=== PATIENT | male | born 1960 | race Caucasian/White ===

== ENCOUNTER 2024-04-04 11:00 | Outpatient (CLI) | payer OTHER, SELFPAY ==
--- NOTE | ~2024-04-04 | CT_ITS ---
EXAMINATION: CT abdomen pelvis wo con DATE: 04/04/2024 11:22 INDICATION: Edema, unspecified. TECHNIQUE: Computed tomography (CT) of the abdomen and pelvis was performed without intravenous contr ast. Automated exposure control and iterative reconstruction technique were employed. The dose-length product was 1107.09 mGy-cm. COMPARISON: None. FINDINGS: The visualized portions of the lung bases demonstrate small right and moderate-sized left p leural effusions. There is dependent atelectasis bilaterally. There is septal thickening in the lungs , consistent mild pulmonary edema. Cardiomegaly is noted. There are coronary artery calcifications. N o pericardial effusion. The liver, spleen, gallbladder, pancreas, and right adrenal gland are normal. There are dystrophic calcifications of left adrenal gland. The kidneys are normal. There is a right inguinal hernia containing fat. There are no dilated loops of bowel. The appendix is normal. There is a large volume of ascites. There are widespread edema of the intra-abdominal fat and body wall. Ther e are mildly enlarged right inguinal, bilateral external iliac, left para-aortic, aortocaval, and per iportal lymph nodes. There is mild thoracic and lumbar spondylosis. There is mild chronic anterior we dging of multiple thoracic vertebral bodies. There are bridging endplate osteophytes at multiple leve ls in the thoracic spine, consistent with diffuse idiopathic skeletal hyperostosis (DISH). IMPRESSION: 1. Small right and moderate-sized left pleural effusions. 2. Mild pulmonary edema. 3. Large volume of ascites. 4. Mild abdominal and pelvic lymphadenopathy, likely reactive. Reviewed, dictated and finalized at location A.
== END 2024-04-04 11:01 | disposition home or self-care (01) ==
PROVIDERS: PCP Physician Assistant Medical; Visit Provider Nurse Practitioner Family
DX: R60.9 Edema, unspecified (principal); R31.9 Hematuria, unspecified; J90 Pleural effusion, not elsewhere classified
CPT/HCPCS: 74176

== ENCOUNTER 2024-05-30 08:31 | Outpatient (CLI) | payer OTHER, SELFPAY ==
--- NOTE | ~2024-05-30 | NM_ITS ---
EXAMINATION: NM vanessa stress w perfusion DATE: 05/30/2024 11:30 INDICATION: Heart failure. TECHNIQUE: Rest images were obtained following intravenous administration of 9.2 mCi Tc99m tetrofosmi n (Myoview). The patient was infused intravenously with Lexiscan (regadenoson). Then, 29.2 mCi Tc99m tetrofosmin (Myoview) was administered intravenously, and supine and prone stress images were obtaine d. Data was reconstructed into short axis and horizontal and vertical long axis SPECT images. Gated S PECT images were also obtained. COMPARISON: CT abdomen and pelvis 04/04/2024 FINDINGS: There is a small, mild, fixed perfusion defect involving left ventricular apex, consistent with infarct. No reversible component to suggest ischemia. There is global hypokinesis. Left ventri cular ejection fraction measures 19%. IMPRESSION: 1. Small area of mild infarct involving left ventricular apex. 2. Global hypokinesis with left ventricular ejection fraction measuring 19%. Reviewed, dictated and finalized at location A. RANS REHABILITATION COUNSELOR
--- NOTE | 2024-05-30 08:48 | ECHO_ITS ---
Patient Info Name: Thierry Box Age: 63 years : 1960 Gender: Male Ht: 70 in Wt: 195 lbs BSA: 2.11 m2 HR: 70 bpm BP: 120 / 78 mmHg Heart Rhythm: Indeterminant Technical Quality: Good Exam Date: 05/30/2024 9:06 AM Exam Location: Echo Lab Patient Status: Outpatient Admit Date: 05/30/2024 Staff Ordering Physician: Nathan Cardenas DO Lumber Sorter Machine: Hood Shelton RDCS Attending Provider: Nathan Cardenas DO Referring Physician: Ronald ASHLEY; Exam Type: CA echo doppler color flow Study Info Indications - heartc failure Complete two-dimensional, color flow and Doppler transthoracic echocardiogram is performed. Summary 1. Complete two-dimensional, color flow and Doppler transthoracic echocardiogram is performed. 2. Left ventricular chamber dimension is severely enlarged. 3. D-shape interventricular septum during systole suggests RV pressure overload. 4. Left ventricular systolic function is severely reduced, estimated at 15-20%. 5. Left ventricular septal wall motion is abnormal with septal motion related to bundle branch block. 6. The left ventricular diastolic function is abnormal. 7. E/e' 33 is significantly elevated. 8. Right ventricular chamber dimension is severely enlarged. 9. Right ventricular systolic function is at least moderately reduced with abnormal TAPSE 1.4 cm. 10. Left atrial chamber dimension is severely enlarged. 11. Right atrial chamber dimension is severely enlarged. 12. There is mild aortic valve sclerosis. 13. There is moderate mitral valve regurgitation. 14. There is mild tricuspid valve regurgitation. 15. No pulmonary hypertension, estimated pulmonary arterial systolic pressure is 33 mmHg. 16. There is trace pulmonic regurgitation. Left Ventricle E/e' 33 is significantly elevated. D-shape interventricular septum during systole suggests RV pressure overload. Left ventricular chamber dimension is severely enlarged. Left ventricular systolic function is severely reduced, estimated at 15-20%. Left ventricular septal wall motion is abnormal with septal motion related to bundle branch block. The left ventricular diastolic function is abnormal. Right Ventricle Right ventricular systolic function is at least moderately reduced with abnormal TAPSE 1.4 cm. Right ventricular chamber dimension is severely enlarged. Left Atria Left atrial chamber dimension is severely enlarged. Right Atria Right atrial chamber dimension is severely enlarged. Aortic Valve The aortic valve is trileaflet. There is mild aortic valve sclerosis. There is no aortic valve stenosis. There is no aortic valve regurgitation. Pulmonic Valve There is trace pulmonic regurgitation. Mitral Valve There is no mitral valve stenosis. There is moderate mitral valve regurgitation. Tricuspid Valve There is mild tricuspid valve regurgitation. No pulmonary hypertension, estimated pulmonary arterial systolic pressure is 33 mmHg. Pericardium/Pleural There is no pericardial effusion. Inferior Vena Cava Normal inferior vena cava with >50% collapse upon inspiration consistent with normal right atrial pressure, 5 mmHg. Aorta The aortic root size at the sinus of Valsalva is normal. Left Ventricular Outflow Tract Name Value Normal LVOT 2D LVOT Diameter 1.9 cm LVOT Doppler LVOT Peak Gradient 1 mmHg LVOT Mean Gradient 1 mmHg LVOT VTI 8 cm LVOT VTI/AV VTI Ratio 0.7 LVOT Stroke Volume 23 ml LVOT CO 2.2 l/min LVOT CI 1.1 l/min/m2 Mitral Valve Name Value Normal MV Doppler MV Decel Alexander 596 cm/s2 MV PHT 50 ms MV Area (PHT) 4.4 cm2 4.0-5.0 MV Regurgitation Doppler MR Peak Gradient 66 mmHg MV Diastolic Function MV E Peak Velocity 103 cm/s MV A Peak Velocity 1 cm/s MV E/A 71.8 MV Decel Time 174 ms MV Annular TDI MV E/e' (Septal) 34.8 <=8.0 MV E/e' (Lateral) 31.9 <=8.0 MV E/e' (Average) 33.4 Tricuspid Valve Name Value Normal TV Regurgitation Doppler TR Peak Velocity 266 cm/s TR Peak Gradient 28 mmHg Estimated PAP/RSVP RA Pressure 5 mmHg <=5 PA Systolic Pressure 33 mmHg <36 RV Systolic Pressure 33 mmHg <36 Aortic Valve Name Value Normal AV Doppler AV Peak Velocity 74 cm/s AV Peak Gradient 2 mmHg AV Mean Gradient 2 mmHg AV VTI 11 cm AV Area (Cont Eq VTI) 2.1 cm2 >=3.0 AV Area (Cont Eq Arsalan) 2.3 cm2 AV Regurgitation 2D LVOT Area 2.9 cm2 Ventricles Name Value Normal LV Dimensions 2D/MM IVS Diastolic Thickness (2D) 0.8 cm 0.6-1.0 LVID Diastole (2D) 6.0 cm 4.2-5.8 LVIW Diastolic Thickness (2D) 0.9 cm 0.6-1.0 LVID Systole (2D) 5.1 cm 2.5-4.0 LVOT Diameter 1.9 cm LV Mass (2D Cubed) 205.05 g 88.00-224.00 LV Mass Index (2D Cubed) 97 g/m2 49-115 Relative Wall Thickness (2D) 0.30 LV Fractional Shortening/Ejection Fraction 2D/MM LV Fractional Shortening (2D) 14 % 25-43 LV EF (2D Teicholz) 30 % 52-72 LV Diastolic Volume (4C MOD) 125 ml LV EF (4C MOD) 18 % LV Diastolic Volume (2C MOD) 288 ml LV EF (2C MOD) 32 % LV Diastolic Volume (BP MOD) 210 ml 62-150 LV Diastolic Volume Index (BP MOD) 100 ml/m2 34-74 LV Systolic Volume (BP MOD) 151 ml 21-61 LV Systolic Volume Index (BP MOD) 72 ml/m2 11-31 LV EF (BP MOD) 28 % 52-72 LV Diastolic Length (4C) 7.8 cm LV Systolic Length (4C) 7.4 cm LV Stroke Volume (4C MOD) 22 ml Atria Name Value Normal LA Dimensions LA Volume (4C A-L) 66 ml LA Volume (BP A-L) 68 ml RA Dimensions RA Area (4C) 26.3 cm2 <=18.0 Report Signatures
--- NOTE | 2024-05-30 08:48 | EST_ITS ---
Patient Info Name: Thierry Box Age: 63 years : 1960 Gender: Male Ht: 70 in Wt: 195 lbs BSA: 2.11 m2 HR: 98 bpm BP: 121 / 90 mmHg Exam Date: 05/30/2024 10:22 AM Exam Location: Echo Lab Patient Status: Outpatient Admit Date: 05/30/2024 Staff Ordering Physician: Nathan Cardenas DO Attending Provider: Nathan Cardenas DO Exercise Technologist: Kerri Arguelles RDCS Exercise Physician: Nathan Cardenas DO Exam Type: CA stress vanessa w NM Study Info A regadenoson stress test was performed. Summary 1. 1. Inconclusive lexiscan stress test for ischemic ST changes by ECG criteria due to baseline LBBB. 2. 2. Stable hemodynamics throughout the test. 3. 3. Nuclear scan to follow and will be reported separately. Please correlate with it. 4. 4. Patient informed of the above results. Protocol: Lexiscan Stress ECG Details Stage: REST Duration (min): 2 min : 48 sec HR (bpm): 98 SBP (mmHg): 121 DBP (mmHg): 90 Stage: REST Duration (min): 12 min : 13 sec HR (bpm): 100 SBP (mmHg): 121 DBP (mmHg): 90 Stage: STAGE 1 Duration (min): 1 min : 0 sec HR (bpm): 102 SBP (mmHg): 114 DBP (mmHg): 83 Stage: RECOVERY Duration (min): 1 min : 0 sec HR (bpm): 102 SBP (mmHg): 114 DBP (mmHg): 83 Stage: RECOVERY Duration (min): 2 min : 0 sec HR (bpm): 102 SBP (mmHg): 114 DBP (mmHg): 83 Stage: RECOVERY Duration (min): 3 min : 0 sec HR (bpm): 101 SBP (mmHg): 113 DBP (mmHg): 87 Stage: RECOVERY Duration (min): 3 min : 14 sec HR (bpm): 100 SBP (mmHg): 113 DBP (mmHg): 87 Rest HR: 100 bpm Peak HR: 103 bpm Rest Sys BP: 121 mmHg Peak Sys BP: 114 mmHg Max Pred HR: 157 bpm % Max Pred HR: 66 % Target HR: 133 bpm Max RPP: 11,742 bpm*mmHg Termination Reason: Completed protocol Cardiac Symptoms: None Total Time: 1 min : 0 sec Rest Beebe BP: 90 mmHg Peak Beebe BP: 83 mmHg Total Dose: 0.4 mg Resting ECG Sinus rhythm, LBBB. Stress ECG No ST changes. Arrhythmias None. Report Signatures
== END 2024-05-30 08:32 | disposition home or self-care (01) ==
PROVIDERS: PCP Physician Assistant Medical; Visit Provider Internal Medicine Cardiovascular Disease
DX: I50.9 Heart failure, unspecified (principal); I34.0 Nonrheumatic mitral (valve) insufficiency; I35.1 Nonrheumatic aortic (valve) insufficiency; I36.1 Nonrheumatic tricuspid (valve) insufficiency
CPT/HCPCS: 78452; 93017; 93306; A9502; J2785

== ENCOUNTER 2024-08-22 13:37 | Outpatient (CLI) | payer OTHER, SELFPAY ==
[2024-08-22] MEDS: PERFLUTREN LIPID MICROSPHERES 1.5 ML VIAL DILUTED TO 10 ML TOTAL VOLUME IV PUSH (13:30)
--- NOTE | 2024-08-22 13:40 | ECHO_ITS ---
Patient Info Name: Thierry Box Age: 63 years : 1960 Gender: Male Ht: 70 in Wt: 180 lbs BSA: 2.02 m2 HR: 85 bpm BP: 138 / 83 mmHg Heart Rhythm: Sinus Rhythm Technical Quality: Good Exam Date: 08/22/2024 1:48 PM Exam Location: Echo Lab Patient Status: Outpatient Admit Date: 08/22/2024 Staff Ordering Physician: Nathan Cardenas DO Tableau Architect: Kerri Arguelles RDCS Attending Provider: Nathan Cardenas DO Referring Physician: Ronald ASHLEY; Exam Type: CA echo dop color flow w con Study Info Indications - heart disease Complete two-dimensional, color flow and Doppler transthoracic echocardiogram is performed with contrast to opacify the left ventricle and to improve the deliniation of the left ventricle endocardial borders. Contrast/Agitated Saline Contrast/Ag. Saline: Definity Amount: 2.00 ml Administered By: Kerri Arguelles RDCS New IV Access: Left Site Condition: IV removed Summary 1. Definity contrast administered improved wall motion interpretation. 2. Left ventricular chamber dimension is severely enlarged. 3. Small apical lateral thrombus. 4. Left ventricular systolic function is severely globally reduced, estimated at 15-20%. 5. The left ventricular diastolic function is abnormal based on e' .06. 6. Right ventricular systolic function is severely reduced. 7. Right ventricular chamber dimension is moderately enlarged. 8. Left atrial chamber dimension is moderately enlarged. 9. Right atrial chamber dimension is moderately enlarged. 10. There is mild aortic valve sclerosis. 11. There is mild to moderate mitral valve regurgitation. 12. There is mild tricuspid valve regurgitation. 13. Moderate pulmonary hypertension, estimated pulmonary arterial systolic pressure is 57 mmHg. Left Ventricle Small apical lateral thrombus. Definity contrast administered improved wall motion interpretation. Left ventricular systolic function is severely globally reduced, estimated at 15-20%. Tissue doppler E/e' was not performed. Left ventricular chamber dimension is severely enlarged. The left ventricular diastolic function is abnormal based on e' .06. Right Ventricle Right ventricular chamber dimension is moderately enlarged. Right ventricular systolic function is severely reduced. Left Atria Left atrial chamber dimension is moderately enlarged. Right Atria Right atrial chamber dimension is moderately enlarged. Aortic Valve The aortic valve is trileaflet. There is mild aortic valve sclerosis. There is no aortic valve stenosis. There is no aortic valve regurgitation. Pulmonic Valve There is no pulmonic regurgitation. Mitral Valve There is no mitral valve stenosis. There is mild to moderate mitral valve regurgitation. Tricuspid Valve There is mild tricuspid valve regurgitation. Moderate pulmonary hypertension, estimated pulmonary arterial systolic pressure is 57 mmHg. Pericardium/Pleural There is no pericardial effusion. Inferior Vena Cava Dilated inferior vena cava with >50% collapse upon inspiration consistent with normal right atrial pressure, 5 mmHg. Aorta The aortic root size at the sinus of Valsalva is normal. Left Ventricular Outflow Tract Name Value Normal LVOT 2D LVOT Diameter 1.89 cm LVOT Doppler LVOT Peak Gradient 3 mmHg LVOT Mean Gradient 1 mmHg LVOT VTI 14.03 cm LVOT VTI/AV VTI Ratio 0.60 LVOT Stroke Volume 39.32 ml LVOT CO 3.29 l/min LVOT CI 1.63 L/min/m2 Pulmonic Valve Name Value Normal RVOT Doppler RVOT Peak Gradient 2 mmHg PV Doppler PV Peak Gradient 3 mmHg Mitral Valve Name Value Normal MV Regurgitation Doppler MR Peak Gradient 68 mmHg Tricuspid Valve Name Value Normal TV Regurgitation Doppler TR Peak Velocity 360.39 cm/s TR Peak Gradient 52 mmHg Estimated PAP/RSVP RA Pressure 5 mmHg <=5 PA Systolic Pressure 57 mmHg <36 RV Systolic Pressure 57 mmHg <36 Aorta Name Value Normal Ascending Aorta Ao Root Diameter (MM) 3.12 cm Ao Root Diam Index (MM) 1.54 cm/m2 Aortic Valve Name Value Normal AV Doppler AV Peak Velocity 144.33 cm/s AV Peak Gradient 8 mmHg AV Mean Gradient 4 mmHg AV VTI 23.23 cm AV Area (Cont Eq VTI) 1.69 cm2 >=3.00 AV Area (Cont Eq Arsalan) 1.67 cm2 AV Regurgitation 2D LVOT Area 2.80 cm2 Ventricles Name Value Normal LV Dimensions 2D/MM IVS Diastolic Thickness (2D) 0.86 cm 0.60-1.00 LVID Diastole (2D) 5.97 cm 4.20-5.80 LVIW Diastolic Thickness (2D) 0.87 cm 0.60-1.00 LVID Systole (2D) 5.28 cm 2.50-4.00 LVOT Diameter 1.89 cm LV Mass (2D Cubed) 203.87 g 88.00-224.00 LV Mass Index (2D Cubed) 0.01 g/cm2 0.00-0.01 Relative Wall Thickness (2D) 0.29 LV Fractional Shortening/Ejection Fraction 2D/MM LV Fractional Shortening (2D) 12 % 25-43 LV EF (2D Teichswathiz) 25 % 52-72 LV Diastolic Volume (4C MOD) 211.20 ml LV EF (4C MOD) 23 % LV Diastolic Volume (2C MOD) 222.55 ml LV EF (2C MOD) 34 % LV Diastolic Volume (BP MOD) 221.33 ml 62.00-150.00 LV Diastolic Volume Index (BP MOD) 0.11 l/m2 0.03-0.07 LV Systolic Volume (BP MOD) 156.81 ml 21.00-61.00 LV Systolic Volume Index (BP MOD) 0.08 l/m2 0.01-0.03 LV EF (BP MOD) 29 % 52-72 LV Diastolic Length (4C) 9.15 cm LV Systolic Length (4C) 8.31 cm LV Stroke Volume (4C MOD) 47.94 ml Atria Name Value Normal LA Dimensions LA Dimension (MM) 5.03 cm 3.00-4.10 LA Volume (4C A-L) 102.02 ml LA Volume (BP A-L) 99.34 ml RA Dimensions RA Area (4C) 22.79 cm2 <=18.00 Report Signatures
--- OUTSIDE RECORDS SUMMARY | 2024-08-22 13:40 | XMS_ITS | Clinical Summary ---
Author Organization [facility] Address [address] [place] [address]. 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 Temperature - - Respiratory Rate - - Oxygen Saturation - - Inhaled Oxygen Concentration - - Weight 89.8 kg (198 lb) 07/07/2015 2:53 PM 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 Height 177.8 cm (5' 10 ) 07/07/2015 2:53 PM 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 Body Mass Index 28.41 07/07/2015 2:53 PM 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 Plan of Treatment Health Maintenance Due Date Last Done Comments Colorectal Cancer Screening Colonoscopy (10 Years) 1960 , Annual Physical 11/09/1963 Hepatitis C 1978 DTaP, Tdap and Td Vaccines ( 1 - Tdap) 11/09/1979 Zoster Vaccines (1 of 2) 2010 COVID-19 Vaccine (2023-2 5 season) 2024 Influenza Adult (#1) 2024 RSV Immunization or 60+ Years (1 - 1-dose 75+ series) 11/09/2035 Meningococcal B Vaccine Aged Out No l onger eligible based on patient's age to complete this topic Meningococcal Vaccine Aged Out No fausto soham eligible based on patient's age to complete this topic Pneumococcal Vaccine: Pediatrics (0 to 5 Years) and At-Risk Patients (6 to 64 Years) Aged Out No longer eligible b ased on patient's age to complete this topic RSV Immunizations Under 20 Months Aged Out No longer eligible b ased on patient's age to complete this topic Procedures Procedure Name Priority Date/Time Associated Diagnosis Comments COLONOSCOPY Routine 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 from Last 3 Months or Most Recently Relevant to Health Maintenance Results * Colonoscopy ( 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) Narrative [facility] TO EPIC CONVERSION - 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 Documented hx of procedure Procedure Note , Generic Conversion, - 05/26/2018 Documented hx of procedure us Generic Conversion Md ANAND GI PROCEDURE ORDERABLES Final Result [facility] TO EPIC CONVERSION from Last 3 Months or Most Recently Relevant to Health Maintenance
--- NOTE | 2024-08-22 15:00 | IVDEFINITY ---
Prior to administration of IV Definity the patient was educated on the risks and benefits of the imaging enhancing agent including potential adverse side effects. The patient verbalized understanding. Allergies were verified. No exclusion criteria were identified and at least one of the following inclusion criteria were met: 1) physician request, 2) patient technically difficult to image (per the [place] [employer]chocardi[employer] guidelines of two or more segments not discernable within the apical view), or 3) questionable left ventricular function. ?
== END 2024-08-22 13:38 | disposition home or self-care (01) ==
PROVIDERS: PCP Physician Assistant Medical; Visit Provider Internal Medicine Cardiovascular Disease
DX: I23.6 Thrombosis of atrium, auricular appendage, and ventricle as current complications following acute myocardial infarction (principal); I50.20 Unspecified systolic (congestive) heart failure; I08.3 Combined rheumatic disorders of mitral, aortic and tricuspid valves; I27.20 Pulmonary hypertension, unspecified
CPT/HCPCS: C8929; Q9957

== ENCOUNTER 2024-10-16 12:40 | Outpatient (CLI) | payer OTHER, SELFPAY ==
--- NOTE | 2024-10-16 13:06 | ECHO_ITS ---
Patient Info Name: Thierry Box Age: 63 years : 1960 Gender: Male Ht: 70 in Wt: 175 lbs BSA: 1.99 m2 HR: 71 bpm BP: 125 / 70 mmHg Technical Quality: Good Exam Date: 10/16/2024 1:12 PM Exam Location: Echo Lab Patient Status: Outpatient Admit Date: 10/16/2024 Staff Ordering Physician: Nathan Cardenas DO Steam Train Driver: Marii Romero RDCS Attending Provider: Nathan Cardenas DO Referring Physician: Ronald ASHLEY; Exam Type: CA echo dop color flow w con Study Info Indications I51.9 - Heart disease, unspecified Complete two-dimensional, color flow and Doppler transthoracic echocardiogram is performed with contrast to opacify the left ventricle and to improve the deliniation of the left ventricle endocardial borders. Contrast/Agitated Saline Contrast/Ag. Saline: Definity Amount: 2.00 ml IV Access Condition: patent with no signs of infiltration New IV Access: Right Site Condition: IV removed Summary 1. Definity contrast administered improved wall motion interpretation. 2. Left ventricular chamber dimension is severely enlarged. 3. Left ventricular systolic function is severely globally reduced, estimated at 20-25%. 4. The left ventricular diastolic function is abnormal. 5. E/e' 10 is mildly elevated. 6. Left atrial chamber dimension is moderately enlarged. 7. Right atrial chamber dimension is mildly enlarged. 8. There is mild to moderate mitral valve regurgitation. 9. There is mild tricuspid valve regurgitation. 10. No pulmonary hypertension, estimated pulmonary arterial systolic pressure is 39 mmHg. Left Ventricle Definity contrast administered improved wall motion interpretation. E/e' 10 is mildly elevated. Left ventricular chamber dimension is severely enlarged. Left ventricular systolic function is severely globally reduced, estimated at 20-25%. The left ventricular diastolic function is abnormal. Right Ventricle Right ventricular chamber dimension is normal. Right ventricular systolic function is normal. Left Atria Left atrial chamber dimension is moderately enlarged. Right Atria Right atrial chamber dimension is mildly enlarged. Aortic Valve The aortic valve is trileaflet. There is no aortic valve stenosis. There is no aortic valve regurgitation. Pulmonic Valve There is no pulmonic regurgitation. Mitral Valve There is no mitral valve stenosis. There is mild to moderate mitral valve regurgitation. Tricuspid Valve There is mild tricuspid valve regurgitation. No pulmonary hypertension, estimated pulmonary arterial systolic pressure is 39 mmHg. Pericardium/Pleural There is no pericardial effusion. Inferior Vena Cava Normal inferior vena cava with >50% collapse upon inspiration consistent with normal right atrial pressure, 5 mmHg. Aorta The aortic root size at the sinus of Valsalva is normal. Left Ventricular Outflow Tract Name Value Normal LVOT 2D LVOT Diameter 2.18 cm LVOT Doppler LVOT Peak Gradient 6 mmHg LVOT Mean Gradient 4 mmHg LVOT VTI 26.58 cm LVOT VTI/AV VTI Ratio 0.69 LVOT Stroke Volume 99.40 ml LVOT CO 21.32 l/min LVOT CI 10.72 L/min/m2 Pulmonic Valve Name Value Normal PV Doppler PV Peak Gradient 3 mmHg Mitral Valve Name Value Normal MV Doppler MV Decel [place] 449.70 cm/s2 MV PHT 0 s MV Area (PHT) 3.91 cm2 4.00-5.00 MV Diastolic Function MV E Peak Velocity 87.25 cm/s MV A Peak Velocity 66.37 cm/s MV E/A 1.31 MV Decel Time 0 s MV Annular TDI MV E/e' (Septal) 14.32 <=8.00 MV E/e' (Lateral) 7.69 <=8.00 MV E/e' (Average) 11.00 Tricuspid Valve Name Value Normal TV Regurgitation Doppler TR Peak Velocity 291.47 cm/s TR Peak Gradient 34 mmHg Estimated PAP/RSVP RA Pressure 5 mmHg <=5 PA Systolic Pressure 39 mmHg <36 RV Systolic Pressure 39 mmHg <36 Aorta Name Value Normal Ascending Aorta Ao Root Diameter (MM) 3.14 cm Ao Root Diam Index (MM) 1.58 cm/m2 Aortic Valve Name Value Normal AV Doppler AV Peak Velocity 180.74 cm/s AV Peak Gradient 13 mmHg AV Mean Gradient 8 mmHg AV VTI 38.24 cm AV Area (Cont Eq VTI) 2.60 cm2 >=3.00 AV Area (Cont Eq Arsalan) 2.43 cm2 AV Regurgitation 2D LVOT Area 3.74 cm2 Ventricles Name Value Normal LV Dimensions 2D/MM IVS Diastolic Thickness (2D) 0.99 cm 0.60-1.00 LVID Diastole (2D) 5.64 cm 4.20-5.80 LVIW Diastolic Thickness (2D) 0.99 cm 0.60-1.00 LVID Systole (2D) 5.08 cm 2.50-4.00 LVOT Diameter 2.18 cm LV Mass (2D Cubed) 219.06 g 88.00-224.00 LV Mass Index (2D Cubed) 0.01 g/cm2 0.00-0.01 Relative Wall Thickness (2D) 0.35 LV Fractional Shortening/Ejection Fraction 2D/MM LV Fractional Shortening (2D) 10 % 25-43 LV EF (2D Teicholz) 21 % 52-72 LV Diastolic Volume (4C MOD) 213.91 ml LV EF (4C MOD) 29 % LV Diastolic Volume (2C MOD) 205.22 ml LV EF (2C MOD) 41 % LV Diastolic Volume (BP MOD) 210.73 ml 62.00-150.00 LV Diastolic Volume Index (BP MOD) 0.11 l/m2 0.03-0.07 LV Systolic Volume (BP MOD) 138.84 ml 21.00-61.00 LV Systolic Volume Index (BP MOD) 0.07 l/m2 0.01-0.03 LV EF (BP MOD) 34 % 52-72 LV Diastolic Length (4C) 9.53 cm LV Systolic Length (4C) 8.25 cm LV Stroke Volume (4C MOD) 61.32 ml RV Dimensions 2D/MM RVID Diastole (2D) 3.76 cm 2.50-3.50 Atria Name Value Normal LA Dimensions LA Dimension (MM) 3.81 cm 3.00-4.10 LA Volume (4C A-L) 87.13 ml LA Volume (BP A-L) 98.96 ml RA Dimensions RA Area (4C) 19.11 cm2 <=18.00 Report Signatures
--- OUTSIDE RECORDS SUMMARY | 2024-10-16 13:24 | XMS_ITS | Clinical Summary ---
Author Organization [facility] Address [address] [place] [address] Care Team Providers Care Business Owner/Engineer Name Role Phone Unavailable Primary Care Provider [...] Comments Blood Pressure 160/60 07/07/2015 2:53 PM WOOD CHOPPER Pulse 105 07/07/2015 2:53 PM WOOD CHOPPER Temperature - - Respiratory Rate - - Oxygen Saturation - - Inhaled Oxygen Concentration - - Weight 89.8 kg (198 lb) 07/07/2015 2:53 PM WOOD CHOPPER Height 177.8 cm (5' 10 ) 07/07/2015 2:53 PM WOOD CHOPPER Body Mass Index 28.41 07/07/2015 2:53 PM WOOD CHOPPER Plan of Treatment Health Maintenance Due Date [...] Priority Date/Time Associated Diagnosis Comments COLONOSCOPY Routine WOOD CHOPPER from Last 3 Months or Most Recently Relevant to Health Maintenance Results * Colonoscopy ( WOOD CHOPPER) Narrative [facility] TO EPIC CONVERSION - WOOD CHOPPER Documented hx of procedure Procedure Note , Generic Conversion, - 05/26/2018 Documented hx of procedure Generic Conversion Md ANAND GI PROCEDURE ORDERABLES Final Result [facility] TO EPIC CONVERSION from Last 3 Months or Most Recently Relevant to Health Maintenance
[2024-10-16] MEDS: PERFLUTREN LIPID MICROSPHERES 1.5 ML VIAL DILUTED TO 10 ML TOTAL VOLUME IV PUSH (13:30)
--- NOTE | 2024-10-16 14:42 | IVDEFINITY ---
Prior to administration of IV Definity the patient was educated on the risks and benefits of the imaging enhancing agent including potential adverse side effects. The patient verbalized understanding. Allergies were verified. No exclusion criteria were identified and at least one of the following inclusion criteria were met: 1) physician request, 2) patient technically difficult to image (per the [place] [employer] of Echocardi[employer] guidelines of two or more segments not discernable within the apical view), or 3) questionable left ventricular function. ?
== END 2024-10-16 12:41 | disposition home or self-care (01) ==
PROVIDERS: PCP Physician Assistant Medical; Visit Provider Internal Medicine Cardiovascular Disease
DX: R93.1 Abnormal findings on diagnostic imaging of heart and coronary circulation (principal); I51.9 Heart disease, unspecified
CPT/HCPCS: C8929; Q9957

== ENCOUNTER 2025-03-02 14:31 | Outpatient (CLI) | payer OTHER, SELFPAY ==
--- OUTSIDE RECORDS SUMMARY | 2025-03-02 14:47 | XMS_ITS | Clinical Summary ---
Author Organization [facility] Address [address] [place] [address] Care Team Providers Care Revenue Coordinator Name Role Phone Unavailable Primary Care Provider [...] Comments Blood Pressure 160/60 07/07/2015 2:53 PM LAY OUT DRAFTER Pulse 105 07/07/2015 2:53 PM LAY OUT DRAFTER Temperature - - Respiratory Rate - - Oxygen Saturation - - Inhaled Oxygen Concentration - - Weight 89.8 kg (198 lb) 07/07/2015 2:53 PM LAY OUT DRAFTER Height 177.8 cm (5' 10) 07/07/2015 2:53 PM LAY OUT DRAFTER Body Mass Index 28.41 07/07/2015 2:53 PM LAY OUT DRAFTER Plan of Treatment Health Maintenance Due Date Last Done Comments Colorectal Cancer Screening Colonoscopy (10 Years) 1960 , Annual Physical 11/09/1963 Hepatitis C 1978 DTaP, Tdap and Td Vaccines ( 1 - Tdap) 11/09/1979 Pneumococcal Vaccine: 50+ Years (1 of 1 - PCV) 2010 Zoster Vaccines (1 of 2) 2010 COVID-19 Vaccine ( - 2023-2 5 season) 2024 RSV Immunization or 60+ Years (1 [...] Priority Date/Time Associated Diagnosis Comments COLONOSCOPY Routine LAY OUT DRAFTER from Last 3 Months or Most Recently Relevant to Health Maintenance Results * Colonoscopy ( LAY OUT DRAFTER) Narrative [facility] TO EPIC CONVERSION - LAY OUT DRAFTER Documented hx of procedure Procedure Note , Generic Conversion, - 05/26/2018 Documented hx of procedure us Generic Conversion Md ANAND GI PROCEDURE ORDERABLES Final Result [facility] TO EPIC CONVERSION from Last 3 Months or Most Recently Relevant to Health Maintenance
--- OUTSIDE RECORDS SUMMARY | 2025-03-02 14:47 | XMS_ITS ---
Author Organization [facility] Address [address] [place] [address] Care Team Providers Care Energy Rater Name Role Phone Cece Bae Primary Care Provider [phone] Jenny PatrickW Unavailable Unavaila Raoul Paul MD Unavailable [phone] Radha Villarreal RN Unavailable Unavailable Khanh Salazar MD Unavailable [phone] Keyshawn Villarreal MD Unavailable [phone] Nathan Cardenas DO Unavailable [phone] Active Problems Problem Noted Date Diagnosed Date Other heart failure 12/02/2024 Assessment & Plan (12/04/2024 10:02 AM CDT): Euvolemic Home meds: lasix, entresto, spironolactone, metoprolol, dapagliflozin Plan Resume home metoprolol XL 25 daily as it has less effect on lowering BP than carvedilol Cautiously continue Lasix 40 PO daily, spironolactone 25 (don't give lasix/radha if SBP<110) Hold dapagliflozin while inpatient, may resume on discharge Hold entresto, resume with PCP after discharge due to soft inpatient BP Assessment & Plan (12/03/2024 8:58 AM CDT): Euvolemic Home meds: lasix, entresto, spironolactone, metoprolol, dapagliflozin Plan Resume metoprolol, patient is getting metoprolol tartrate, which is not optimal for HF, please check with the pharmacy if can get either metoprolol succinate or carvedilol through the NG Hold entresto in the setting of post-op soft BP Cautiously continue Lasix 40 PO daily, spironolactone 25 (don't give lasix/radha if SBP<110) Hold dapagliflozin till discharge Assessment & Plan (12/02/2024 2:44 PM CDT): Euvolemic Home meds: lasix, entresto, spironolactone, metoprolol, dapagliflozin Plan Resume home metoprolol XL 25 daily Hold entresto in the setting of post-op soft BP Cautiously continue Lasix 40 PO daily, spironolactone 25 (don't give lasix/radha if SBP<110) Hold dapagliflozin till discharge 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 Assessment & Plan (12/04/2024 10:02 AM CDT): Patient on home warfarin, and 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 No echo in records Plan Please resume Anticoagulation till further decision by outpatient cardiology May bridge with enoxaparin 80 BID for 3-5 days with warfarin till therapeutic INR Follow INR daily as inpatient, and in 2-3 days post discharge as outpatient Assessment & Plan (12/03/2024 8:58 AM CDT): Patient on home warfarin, and 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 No echo in records Plan Please resume Anticoagulation till further decision by outpatient cardiology May bridge with enoxaparin 80 BID for 3-5 days with warfarin till therapeutic INR Follow INR daily as inpatient, and in 2-3 days post discharge as outpatient Assessment & Plan (12/02/2024 2:44 PM CDT): Patient on home warfarin, and 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 Bilateral neck dissection. Bilateral level 1A, 1B, 2A, 3 and 4. Right inferior radical parotidectomy. Right osteocutaneous fibula free flap (with modifier 62, Dr. Matute flap raising, Dr. Salazar inset and microvascular anastomosis.) Mandibular plating, use of 2.0 Valdez plate with virtual surgical planning Mandibular osteotomy (within the fibula.) Nerve graft, right sural nerve, 10 cm right inferior alveolar nerve to right mental nerve. Open tracheostomy without Hermes flap. Assessment & Plan (12/04/2024 10:02 AM CDT): mandibular Squamous cell carcinoma (diagnosed 10/2024) S/p mandibulectomy with reconstruction, done 11/28/24 by ENT Assessment & Plan (12/03/2024 8:58 AM CDT): mandibular Squamous cell carcinoma (diagnosed 10/2024) S/p mandibulectomy with reconstruction, done 11/28/24 by ENT Assessment & Plan (12/02/2024 10:46 AM CDT): mandibular Squamous cell carcinoma (diagnosed 10/2024) S/p mandibulectomy with reconstruction, done 11/28/24 by ENT Lesion of mandible 10/30/2024 Bone neoplasm 12/23/2012 Current Treatment and Therapy Plans No current plan information found. Past Treatment and Therapy Plans No past plan information found. Current Radiation Episodes * Radiation Oncology - Radiation Therapy - October 2024Overview* First Treatment Date Latest Treatment Date Treatment Site Technique Goal Episode Provider 01/07/2025 02/18/2025 Keyshawn Villarreal MD Treatment Courses* Course [id number]/07/2025 - 02/18/2025 Treatment Period Fraction Dose Fractions Total Dose Plans Planned H&N 01/07/2025 - 02/18/2025 200 30 / 6 ,000 Reference Points Delivered [id number] 01/07/2025 - 02/18/2025 6,000 Lifetime Dose Tracking * Chemical Lifetime Dose Automatic Entry Manual Entr y DLP 2,001 mGycm 2,001 mGycm 0 mGycm
--- OUTSIDE RECORDS SUMMARY | 2025-03-02 14:48 | XMS_ITS | Clinical Summary ---
Author Organization [facility] Address [address] [place] [id number] Care Team Providers Care Mobility Engineer Name Role Phone Cece Bae Primary Care Provider [phone] Jenny PatrickW Unavailable Unavaila Raoul Paul MD Unavailable [phone] Radha Villarreal RN Unavailable Unavailable Khanh Salazar MD Unavailable [phone] Keyshawn Villarreal MD Unavailable [phone] Nathan Cardenas DO Unavailable [phone] Allergies No known active allergies Medications Entresto 24-26 mg tabletIndications :chronic heart failure Take 1 tablet by mouth 2 (two) times a day 5 Active dapagliflozin propanediol (FARXIGA) 10 mg tabletIndications :Heart Failure Take 1 tablet (10 mg total) by mouth java portal developer before breakfast Active metoprolol XL (TOPROL-XL) 25 mg extended release tabletIndications :hypertension Take 1 tablet (25 mg total) by mouth java portal developer before breakfast Active naproxen sodium (ALEVE ORAL)Indications: pain Take 2 tablets by mouth daily as needed (pain) Active acetaminophen (TYLENOL) 325 mg tablet Take 2 tablets (650 mg total) by mouth every 4 (four) hours 5 Active chlorhexidine (PERIDEX) 0.12 % oral rinse Apply 15 mL to the mouth or throat 3 (three) times a day 473 mL 5 Active warfarin (COUMADIN) 5 mg tabletIndications :Venous Thrombosis Administer per tube 2 tablets (10 mg total) 5 Active carvediloL (COREG) 3.125 mg tablet Administer per tube 1 tablet (3.125 mg total) 2 (two) times a day 60 tablet 5 Active furosemide (LASIX) 40 mg tabletIndications :Edema,hypertensi on Administer per tube 1 tablet (40 mg total) java portal developer before breakfast 5 Active spironolactone (ALDACTONE) 25 mg tabletIndications :chronic heart failure,hypertens ion Administer per tube 1 tablet (25 mg total) java portal developer before breakfast 5 Active allopurinoL (ZYLOPRIM) 300 mg tabletIndications :prevention of acute gout attack Administer per tube 1 tablet (300 mg total) java portal developer before breakfast 5 Active fluconazole (DIFLUCAN) 100 mg tablet Take 1 tablet (100 mg total) by mouth daily Take two tablets day 1, then one tablet daily on days 2-10. 11 tablet 5 Active al & mag hydroxide with simethicone-diphe nhydramine-lidoca ine (MAGIC MOUTHWASH) suspension 1-1-1 Swish and swallow 15 mL every 4 (four) hours as needed (pain with swallowing) 300 mL 5 Active silver sulfadiazine (SILVADENE, SSD) 1 % cream Apply topically 3 (three) times a day 50 g 1 5 Active Active Problems Problem Noted Date Diagnosed Date [...] on home warfarin, and already has a isobutylene operator chief to follow with No echo in records Plan Please resume Anticoagulation till further decision by outpatient cardiology May bridge with enoxaparin 80 BID for 3-5 days with warfarin till therapeutic INR Follow INR daily as inpatient, and in 2-3 days post discharge as outpatient Assessment & Plan (12/03/2024 8:58 AM CDT): Patient on home warfarin, and already has a isobutylene operator chief to follow with No echo in records Plan Please resume Anticoagulation till further decision by outpatient cardiology May bridge with enoxaparin 80 BID for 3-5 days with warfarin till therapeutic INR Follow INR daily as inpatient, and in 2-3 days post discharge as outpatient Assessment & Plan (12/02/2024 2:44 PM CDT): Patient on home warfarin, and already has a isobutylene operator chief to follow with No echo in records Plan Please resume Anticoagulation till further decision by outpatient cardiology May bridge with enoxaparin 80 BID for 3-5 days with warfarin till therapeutic INR Follow INR daily as inpatient, and in 2-3 days post discharge as outpatient 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 Bilateral neck dissection. Bilateral level 1A, 1B, 2A, 3 and 4. Right inferior radical parotidectomy. Right osteocutaneous fibula free flap (with modifier 62, Dr. Matute flap raising, Dr. Salazar inset and microvascular anastomosis.) Mandibular plating, use of 2.0 [place] plate with virtual surgical planning Mandibular osteotomy [...] Lesion of mandible 10/30/2024 Bone neoplasm 12/23/2012 Encounters Date Type Department Care Team Description 02/26/2025 10:00 AM CDT Therapy [facility] OP Speech Therapy [address] [place] [address] Cailin Carreno, WATERMASTER Lesion of mandible (Primary Dx); Squamous cell carcinoma of mandible (HCC); Dysphagia, oral phase; Lymphedema 02/24/2025 1:00 PM CDT Therapy [facility] OP Speech Therapy [address] [address] Cailin Carreno, WATERMASTER Lesion of mandible (Primary Dx); Squamous cell carcinoma of mandible (HCC); Dysphagia, oral phase; Lymphedema 02/18/2025 11:00 AM CDT Treatment [facility] 2 Radiation Oncology [address] [place] [address] Keyshawn Villarreal MD 02/18/2025 Completion of Therapy [facility] 2 Radiation Oncology [address] [place] [phone] Keyshawn Villarreal MD 02/18/2025 OTV [facility] 2 Radiation Oncology [address] [place] [address] Keyshawn Villarreal MD 02/18/2025 Orders Only RAD ONC TREATMENTS Miscellaneous, Not In File 02/17/2025 11:00 AM CDT Treatment [facility] 2 Radiation Oncology [address] [place] [address] 02/17/2025 Orders Only RAD ONC TREATMENTS Miscellaneous, Not In File 02/16/2025 11:00 AM CDT Treatment [facility] 2 Radiation Oncology [address] [place] [address] 81737 02/16/2025 Orders Only RAD ONC TREATMENTS Miscellaneous, Not In File 02/13/2025 11:00 AM CDT Treatment [facility] 2 Radiation Oncology [address] [place] [address] 02/13/2025 OTV [facility] 2 Radiation Oncology [address] [place] [address] Keyshawn Villarreal MD 02/13/2025 Orders Only RAD ONC TREATMENTS Miscellaneous, Not In File 02/12/2025 11:00 AM CDT Treatment [facility] 2 Radiation Oncology [address] [place] [address] 02/12/2025 Orders Only RAD ONC TREATMENTS Miscellaneous, Not In File 02/11/2025 11:00 AM CDT Treatment [facility] 2 Radiation Oncology [address] [place] [address] [phone] 02/11/2025 Orders Only RAD ONC TREATMENTS Miscellaneous, Not In File 02/10/2025 11:00 AM CDT Treatment [facility] 2 Radiation Oncology [address] [place] [address] 284[address] 02/10/2025 Orders Only RAD ONC TREATMENTS Miscellaneous, Not In File 02/09/2025 3:00 PM CDT Therapy [facility] OP Speech Therapy [address] [place] [address] Cailin Carreno, WATERMASTER Lesion of mandible (Primary Dx); Squamous cell carcinoma of mandible (HCC); Dysphagia, oral phase; Lymphedema 02/09/2025 11:00 AM CDT Treatment [facility] 2 Radiation Oncology [address] [place] [address] 02/09/2025 Orders Only RAD ONC TREATMENTS Miscellaneous, Not In File 02/06/2025 3:00 PM CDT Therapy [facility] OP Speech Therapy [address] [place] [address] Cailin Carreno, WATERMASTER Lesion of mandible (Primary Dx); Squamous cell carcinoma of mandible (HCC); Dysphagia, oral phase 02/06/2025 11:00 AM CDT Treatment [facility] 2 Radiation Oncology [address] [place] [address] 02/06/2025 OTV [facility] 2 Radiation Oncology [address] [place] [address] Keyshawn Villarreal MD 02/06/2025 Orders Only RAD ONC TREATMENTS Miscellaneous, Not In File 02/05/2025 11:00 AM CDT Treatment [facility] 2 Radiation Oncology [address] [place] [phone] 02/05/2025 Documentation [facility] OP Speech Therapy [address] [place] [address] Cailin Carreno, WATERMASTER 02/05/2025 Orders Only RAD ONC TREATMENTS Miscellaneous, Not In File 02/04/2025 11:00 AM CDT Treatment [facility] 2 Radiation Oncology [address] [place] [address] 02/04/2025 Telephone [facility] OP Speech Therapy [address] [place] [address] Cailin Carreno, WATERMASTER 02/04/2025 Orders Only RAD ONC TREATMENTS Miscellaneous, Not In File 02/03/2025 11:00 AM CDT Treatment [facility] 2 Radiation Oncology [address] [place] [address] 02/03/2025 Orders Only RAD ONC TREATMENTS Miscellaneous, Not In File 02/02/2025 11:00 AM CDT Treatment [facility] 2 Radiation Oncology [address] [place] [address] 02/02/2025 Orders Only RAD ONC TREATMENTS Miscellaneous, Not In File 01/30/2025 11:00 AM CDT Treatment [facility] 2 Radiation Oncology [address] [place] [phone] 01/30/2025 Orders Only RAD ONC TREATMENTS Miscellaneous, Not In File 01/29/2025 10:30 AM CDT Treatment [facility] 2 Radiation Oncology [address] [place] [address] 01/29/2025 OTV [facility] 2 Radiation Oncology [address] [place] [address] Keyshawn Villarreal MD 01/29/2025 Orders Only RAD ONC TREATMENTS Miscellaneous, Not In File 01/28/2025 11:00 AM CDT Treatment [facility] 2 Radiation Oncology [address] [place] [address] 01/28/2025 Orders Only RAD ONC TREATMENTS Miscellaneous, Not In File 01/27/2025 2:00 PM CDT Therapy [facility] OP Speech Therapy [address] [address] Cailin Carreno, WATERMASTER Lesion of mandible (Primary Dx); Squamous cell carcinoma of mandible (HCC); Dysphagia, oral phase; Lymphedema 01/27/2025 11:00 AM CDT Treatment [facility] 2 Radiation Oncology [address] [place] [address] 01/27/2025 Orders Only RAD ONC TREATMENTS Miscellaneous, Not In File 01/26/2025 11:00 AM CDT Treatment [facility] 2 Radiation Oncology [address] [place] [address] 01/26/2025 Orders Only RAD ONC TREATMENTS Miscellaneous, Not In File 01/22/2025 11:00 AM CDT Treatment [facility] 2 Radiation Oncology [address] [place] [address] 01/22/2025 Orders Only RAD ONC TREATMENTS Miscellaneous, Not In File 01/21/2025 11:00 AM CDT Treatment [facility] 2 Radiation Oncology [address] [place] [address] 01/21/2025 OTV [facility] 2 Radiation Oncology [address] [place] [address] Keyshawn Villarreal MD 01/21/2025 Orders Only RAD ONC TREATMENTS Miscellaneous, Not In File 01/20/2025 11:00 AM CDT Treatment [facility] 2 Radiation Oncology [address] [place] [address] 78483 01/20/2025 Orders Only RAD ONC TREATMENTS Miscellaneous, Not In File 01/19/2025 11:00 AM CDT Treatment [facility] 2 Radiation Oncology [address] [place] [address] 01/19/2025 Orders Only RAD ONC TREATMENTS Miscellaneous, Not In File 01/19/2025 Plan of Care Documentation [facility] OP Speech Therapy [address] [place] [address] 01/16/2025 1:00 PM CDT Therapy [facility] OP Speech Therapy [address] [place] [address] Cailin Carreno, WATERMASTER Lesion of mandible (Primary Dx); Squamous cell carcinoma of mandible (HCC); Dysphagia, oral phase; Lymphedema 01/16/2025 11:00 AM CDT Treatment [facility] 2 Radiation Oncology [address] [place] [address] 111[address] 01/16/2025 OTV [facility] 2 Radiation Oncology [address] [place] [phone] Keyshawn Villarreal MD 01/16/2025 Orders Only RAD ONC TREATMENTS Miscellaneous, Not In File 01/15/2025 11:00 AM CDT Treatment [facility] 2 Radiation Oncology [address] [place] [address] 88728 01/15/2025 Orders Only RAD ONC TREATMENTS Miscellaneous, Not In File 01/14/2025 11:00 AM CDT Treatment [facility] 2 Radiation Oncology [address] [place] [address] 16[address] 01/14/2025 Orders Only RAD ONC TREATMENTS Miscellaneous, Not In File 01/13/2025 11:00 AM CDT Treatment [facility] 2 Radiation Oncology [address] [place] [address] 197[address] 01/13/2025 Orders Only RAD ONC TREATMENTS Miscellaneous, Not In File 01/12/2025 11:00 AM CDT Treatment [facility] 2 Radiation Oncology [address] [place] [address] 76037 01/12/2025 Orders Only RAD ONC TREATMENTS Miscellaneous, Not In File 01/09/2025 11:00 AM CDT Treatment [facility] 2 Radiation Oncology [address] [place] [address] 24848 01/09/2025 OTV [facility] 2 Radiation Oncology [address] [place] [address] Keyshawn Villarreal MD 01/09/2025 Orders Only RAD ONC TREATMENTS Miscellaneous, Not In File 01/08/2025 11:00 AM CDT Treatment [facility] 2 Radiation Oncology [address] [place] [address] 01/08/2025 Orders Only RAD ONC TREATMENTS Miscellaneous, Not In File 01/07/2025 11:05 AM CDT Treatment [facility] 2 Radiation Oncology [address] [place] [address] 20153 Keyshawn Villarreal MD 01/07/2025 11:00 AM CDT Treatment [facility] 2 Radiation Oncology [address] [place] [address] Keyshawn Villarreal MD 01/07/2025 Orders Only RAD ONC TREATMENTS Miscellaneous, Not In File 01/06/2025 7:50 PM CDT Treatment [facility] 2 Radiation Oncology [address] [place] [address] 01/06/2025 Telephone [facility] [address] [place] [address] [place] [address] Radha Villarreal, JOSS Navigation follow up-tx start check in 12/30/2024 Documentation [facility] 2 Radiation Oncology [address] [place] [address] Fina Contreras RN 12/23/2024 12:30 PM CDT Telemedicine [facility] Oncology [facility] Floor 5 [place] [address] Pennie Laguna NP Squamous cell carcinoma of mandible (HCC) (Primary Dx); Head and neck cancer (HCC) 12/22/2024 2:00 PM CDT Treatment [facility] 2 Radiation Oncology [address] [place] [address] Keyshawn Villarreal MD 12/22/2024 1:00 PM CDT Office Visit [facility] 2 Radiation Oncology [address] [place] [address] Keyshawn Villarreal MD Squamous cell carcinoma of mandible (HCC) (Primary Dx) 12/19/2024 Orders Only [facility] Oncology [facility] [place] [address] Edison Henderson RN 12/18/2024 2:00 PM CDT Therapy [facility] Otolaryngology [address] [place] [phone] Tiny Lyn, MARIE Dysphagia, oral phase (Primary Dx); Lesion of mandible 12/18/2024 1:00 PM CDT Office Visit [facility] Department of Otolaryngology Head-Neck Division [address] [place] [phone] Khanh Salazar MD Squamous cell carcinoma of mandible (HCC) (Primary Dx) 12/12/2024 Documentation [facility] Department of Otolaryngology Head-Neck Division [address] [place] [address] [phone] Estefanía Burrell RN 12/10/2024 Telephone [facility] [address] [phone] Radha Villarreal, JOSS Navigation follow up-hospital discharge check in 12/08/2024 Documentation [facility] Department of Otolaryngology Head-Neck Division [address] [place] [address] [phone] Estefanía Burrell RN 12/02/2024 10:50 AM CDT Clinical Support [address] [facility] 1st [place] [address] Pretty Luu 11/28/2024 5:23 AM CDT - 12/09/2024 1:14 PM CDT Hospital Encounter [facility] [place] [address] Khanh Salazar MD Aftercare following surgery for neoplasm (Primary Dx); Squamous cell carcinoma of mandible (HCC); Cancer of head and neck (HCC) Discharge Disposition: Discharge to home, home health skilled care from Last 3 Months Surgical History Surgery Date Site/Laterality Comments KNEE SURGERY 07/23/2009 - 07/22/2010 HERNIA REPAIR 07/23/2014 - 07/22/2015 N/A Umbilical MANDIBULECTOMY 11/28/2024 Mouth/Right Procedure: MANDIBULECTOMY.; Surgeon: Khanh Salazar MD; Location: [facility] OR POD 5; Service: Otolaryngology; Laterality: Right; Medical devices from this surgery are in the Medical Devices section. MANDIBLE OSTEOTOMY 11/28/2024 Head/N/A Procedure: OSTEOTOMY MANDIBULAR.; Surgeon: Khanh Salazar MD; Location: [facility] OR POD 5; Service: Otolaryngology; Laterality: N/A; Medical devices from this surgery are in the Medical Devices section. RECONSTRUCTION MANDIBLE 11/28/2024 Head/Right Procedure: RECONSTRUCTION MANDIBLE - PLATING; Surgeon: Khanh Salazar MD; Location: [facility] OR POD 5; Service: Otolaryngology; Laterality: Right; Medical devices from this surgery are in the Medical Devices section. Medical History Medical History Date Comments MARIN (obstructive sleep apnea) no machine Family History Medical History Relation Name Comments Colon cancer Father Non-Hodgkin's Lymphoma Father Non-Hodgkin's Lymphoma Father's Brother Colon cancer Mother Colon cancer Sister Anesthesia problems Neg Hx Malig Hypertension Neg Hx Malig Hyperthermia Neg Hx Pseudochol deficiency Neg Hx Relation Name Status Comments Father Father's Brother Mother Alive Sister Alive Social History Tobacco Use Types Packs/Day Years Used Date Smoking Tobacco: Never Passive Smoke Exposure: Never Smokeless Tobacco: Never Tobacco Cessation:Counseling Given: Not Answered [facility] Utilities Answer Date Recorded In the past 12 months has th e Compass [employer], gas, oil, or water [employer] Site [employer] threatened to shut off services in your home? No 10/31/2024 Social Connection and Isolation Panel Answer Date Recorded In a typical week, how many times do you talk on the phone with family, friends, or neighbors? More than three times a week 10/31/2024 How often do you get togethe r with friends or relatives? More than three times a week 10/31/2024 How often do you attend chur ch or yazidi services? Never 10/31/2024 Do you belong to any clubs o r organizations such as advent groups, unions, fraternal or athletic groups, or school groups? No 10/31/2024 How often do you attend meet ings of the clubs or organizations you belong to? Never 10/31/2024 Are you , , di vorced, , never , or living with a partner? 10/31/2024 AUDIT-C Answer Date Recorded Q1: How often do you have a drink containing alcohol? Never 11/21/2024 Q2: How many drinks containi ng alcohol do you have on a typical day when you are drinking? Patient does not drink Q3: How often do you have si x or more drinks on one occasion? Never 11/21/2024 Overall Financial Resource Strain (CARDIA) Answe r Date Recorded How hard is it for you to pa y for the very basics like food, housing, medical care, and heating? Not hard at all 10/31/2024 PHQ-2 Answer Date Recorded PHQ-2 Total Score 0 10/31/2024 Hunger Vital Sign Answer Date Recorded Within the past 12 months, y ou worried that your food would run out before you got the money to buy more. Never true 11/01/19 25 Within the past 12 months, t he food you bought just didn't last and you didn't have money to get more. Never true 10/31/2024 PRAPARE - Transportation Answer Date Re corded In the past 12 months, has l ack of transportation kept you from medical appointments or from getting medications? No 10/21 In the past 12 months, has l ack of transportation kept you from meetings, work, or from getting things needed for daily living? No 10/31/2024 Housing Stability Vital Sign Answer Tha e Recorded In the last 12 months, was t here a time when you were not able to pay the mortgage or rent on time? No 10/31/2024 In the past 12 months, how m any times have you moved where you were living? 0 10/31/2024 At any time in the past 12 m [facility], were you homeless or living in a mcc (including now)? No 10/31/2024 Personal Safety Answer Date Recorded Have you ever been in or are you currently in a harmful physical or emotional relationship or is someone making you feel afraid or unsafe? Denies 11/29/2024 Sex and Gender Information Value Date Recorded Sex Assigned at Not on file Legal Sex Male 10:23 AM [employer] Gender Identity Male 10/30/2024 1:58 PM CDT Sexual Orientation Not on file Obstetrics History Last Filed Vital Signs Vital Sign Reading Time Taken Comments Blood Pressure 120/64 02/18/2025 10:49 AM CDT Pulse 90 02/18/2025 10:49 AM CDT Temperature 36.4 C (97.5 F) 12/09/2024 7:20 AM CDT Respiratory Rate 16 12/09/2024 7:20 AM CDT Oxygen Saturation 100% 02/18/2025 10:49 AM CDT Inhaled Oxygen Concentration - - Weight 74.5 kg (164 lb 3.2 oz) 02/18/2025 10:49 AM CDT Height 177.8 cm (5' 10) 11/29/2024 5:15 AM CDT Body Mass Index 23.56 11/29/2024 5:15 AM CDT Plan of Treatment Health Maintenance Due Date Last Done Comments Colon Cancer Screening-Colonoscopy 1960 Hepatitis C Screening 1960 Prostate Cancer Screening-PSA 1960 DTaP/Tdap/Td Vaccine (1 - Tdap) 11/09/1971 Hepatitis B Screening 1978 Regular Well Visit/Exam 18-64 1978 Pneumococcal vaccine <65 (1 of 2 - PCV) 11/09/1979 Zoster Vaccine (1 of 2) 11/09/1979 Influenza Vaccine (#1) 2025 Depression Screening 10/31/2025 10/31/2024 Medical Devices Implanted Type Area Help Desk Intern Device Identifier Shelf Expiration Date Model / Serial / Lot [employer] Probe Doppler 17.4cm Standard Cuff Implantable 20mhz Latex Free Sterile Microvascular Anastomoses Jeffrey [id number] - [id number] Implanted:Qty: 1 on 11/28/2024 by Khanh Salazar MD at [facility] Other - see comments Left: Neck [employer] [id number] 07/22/2027 [id number] / / [id number] [employer] [address] Mixer Operator Anastomotic Microvascular Green Stainless Steel [address] Mixer Operator 2.0mm [id number] - [id number] Implanted:Qty: 1 on 11/28/2024 by Khanh Salazar MD at [facility] Other - see comments Right: Neck [employer]ogy Allian [id number] 09/23/2028 [id number] / / [id number]- [id number] [employer] Implant Dental Nobelactive Titanium Tiunite L10mm Od3.5mm Internal Conical Connection Narrow Platform Texture Collar Sterile [id number] - [id number] Implanted:Qty: 1 on 11/28/2024 by Castillo Coleman DMD at [facility] Other - see comments Right: Tooth [employer] [id number] / / [employer] Implant Dental Nobelactive Titanium Tiunite L10mm Od3.5mm Internal Conical Connection Narrow Platform Texture Collar Sterile [id number] - [id number] Implanted:Qty: 3 on 11/28/2024 by Castillo Coleman DMD at [facility] Other - see comments Right: Tooth [employer] [id number] / / [employer] 3.6mm 7mm Healing Internal Conical Connection Nonengage Narrow 94767 - [id number] Implanted:Qty: 4 on 11/28/2024 by Castillo Coleman DMD at [facility] Other - see comments Right: Tooth [employer] [id number] / / [employer] Implant Dental Nobelactive L11.5mm Od4.3mm Internal Conical Connection Regular Platform Textured Collar Parallel Drill Reverse Cutting Flute Sterile Disposable [id number] - [id number] Implanted:Qty: 1 on 11/28/2024 by Castillo Coleman DMD at [facility] Other - see comments Right: Tooth [employer] [id number] / / Musculoskeletal Transplant Allograft Putty Freeze Dried Filler 5cc Bone Void Dbx [id number] - [id number] - [id number] Implanted:Qty: 1 on 11/28/2024 by Castillo Coleman DMD at [facility] Other - see comments Right: Tooth Musculoskeletal Transplant 01/09/2026 [id number] / [id number] / [employer] Cover Screw Titanium Cover Internal Conical Connection Regular Platform Sterile 01663 - [id number] Implanted:Qty: 2 on 11/28/2024 by Castillo Coleman DMD at [facility] Other - see comments Right: Tooth [employer] [id number] 01/26/2027 [id number] / / [id number] [employer] Implant Dental Nobelactive L11.5mm Od4.3mm Internal Conical Connection Regular Platform Textured Collar Parallel Drill Reverse Cutting Flute Sterile Disposable 11182 - S0 - [id number] Implanted:Qty: 1 on 11/28/2024 by Castillo Coleman DMD at [facility] Other - see comments Right: Tooth [employer]are [id number] / 0 / [employer] Probe Doppler 17.4cm Standard Cuff Implantable 20mhz Latex Free Sterile Microvascular Anastomoses [place] [id number] - [id number] Implanted:Qty: 1 on 11/28/2024 by Khanh Salazar MD at [facility] Right: Neck [employer] [id number] / / Scaleogy Allian [place] Microvascular 3.5mm Ring Pin Protective Cover Jaw Assembly Latex Free [id number] - [id number] Implanted:Qty: 1 on 11/28/2024 by Khanh Salazar MD at [facility] Right: Neck Scaleogy Aida [id number] 03/25/2029 [id number] / / [id number] Valdez Craniomaxillofa cial 2mm Primary Reconstruction Customize Mandible Deep Plate Bone [id number] - [id number] Implanted:Qty: 1 on 11/28/2024 by Khanh Salazar MD at [facility] Right: Mandible Valdez Craniomaxillofacia l [id number] / / [place] Craniomaxillofa cial Screw Bone 8x2mm Axs St Mandible Craniomaxfcl Nonstrl 5pk 56-60383 - [id number] Implanted:Qty: 4 on 11/28/2024 by Khanh Salazar MD at [facility] Right: Mandible [place] Craniomaxillofacia l [id number] / / [place] Craniomaxillofa cial Screw Bone 10x2mm Axs St Mandible Craniomaxfcl Nonstrl 5pk 56-08357 - [id number] Implanted:Qty: 2 on 11/28/2024 by Khanh Salazar MD at [facility] Right: Mandible Valdez Craniomaxillofacia l [id number] / / Valdez Craniomaxillofa cial Screw Bone 6x2.3mm Axs Sd Mandible Craniomaxfcl Lock 56-31935 - [id number] Implanted:Qty: 3 on 11/28/2024 by Khanh Salazar MD at [facility] Right: Mandible [place] Craniomaxillofacia l [id number] / / [place] Craniomaxillofa cial Screw Bone 10x2.3mm Axs Sd Mandible Craniomaxfcl Lock 56-04846 - [id number] Implanted:Qty: 1 on 11/28/2024 by Khanh Salazar MD at [facility] Right: Mandible [place] Craniomaxillofacia l [id number] / / [place] Craniomaxillofa cial Screw Bone 12x2.3mm Axs Sd Mandible Craniomaxfcl Lock 56-66909 - [id number] Implanted:Qty: 3 on 11/28/2024 by Khanh Salazar MD at [facility] Right: Mandible [place] Craniomaxillofacia l [id number] / / [employer] Craniomaxillofa cial Screw Bone 6x2mm Axs St Mandible Craniomaxfcl Lock Nonstrl 56- - [id number] Implanted:Qty: 4 on 11/28/2024 by Khanh Salazar MD at [facility] Right: Mandible Valdez Craniomaxillofacia l / / Explanted Type Area Help Desk Intern Device Identifier Shelf Expiration Date Model / Serial / Lot Valdez Craniomaxillofacial Screw Bone 8x2mm Axs St Mandible Craniomaxfcl Nonstrl 5pk 56- - [id number] Explanted:Qty: 1 on 11/28/2024 by Khanh Salazar MD at [facility] 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 / / Procedures Procedure Name Priority Date/Time Associated Diagnosis Comments RAD ONC ARIA SESSION SUMMARY 02/18/2025 10:41 AM CDT RAD ONC ARIA SESSION SUMMARY 02/17/2025 11:08 AM CDT RAD ONC ARIA SESSION SUMMARY 02/16/2025 11:04 AM CDT RAD ONC ARIA SESSION SUMMARY 02/13/2025 11:08 AM CDT RAD ONC ARIA SESSION SUMMARY 02/12/2025 11:05 AM CDT RAD ONC ARIA SESSION SUMMARY 02/11/2025 11:03 AM CDT RAD ONC ARIA SESSION SUMMARY 02/10/2025 11:01 AM CDT RAD ONC ARIA SESSION SUMMARY 02/09/2025 11:31 AM CDT RAD ONC ARIA SESSION SUMMARY 02/06/2025 11:21 AM CDT RAD ONC ARIA SESSION SUMMARY 02/05/2025 11:04 AM CDT RAD ONC ARIA SESSION SUMMARY 02/04/2025 11:08 AM CDT RAD ONC ARIA SESSION SUMMARY 02/03/2025 10:47 AM CDT RAD ONC ARIA SESSION SUMMARY 02/02/2025 11:31 AM CDT RAD ONC ARIA SESSION SUMMARY 01/30/2025 10:59 AM CDT RAD ONC ARIA SESSION SUMMARY 01/29/2025 10:41 AM CDT RAD ONC ARIA SESSION SUMMARY 01/28/2025 11:13 AM CDT RAD ONC ARIA SESSION SUMMARY 01/27/2025 11:11 AM CDT RAD ONC ARIA SESSION SUMMARY 01/26/2025 11:21 AM CDT RAD ONC ARIA SESSION SUMMARY 01/22/2025 11:21 AM CDT RAD ONC ARIA SESSION SUMMARY 01/21/2025 11:16 AM CDT RAD ONC ARIA SESSION SUMMARY 01/20/2025 11:15 AM CDT RAD ONC ARIA SESSION SUMMARY 01/19/2025 11:12 AM CDT RAD ONC ARIA SESSION SUMMARY 01/16/2025 11:00 AM CDT RAD ONC ARIA SESSION SUMMARY 01/15/2025 10:49 AM CDT RAD ONC ARIA SESSION SUMMARY 01/14/2025 10:42 AM CDT RAD ONC ARIA SESSION SUMMARY 01/13/2025 10:47 AM CDT RAD ONC ARIA SESSION SUMMARY 01/12/2025 11:28 AM CDT RAD ONC ARIA SESSION SUMMARY 01/09/2025 11:03 AM CDT RAD ONC ARIA SESSION SUMMARY 01/08/2025 10:56 AM CDT RAD ONC ARIA SESSION SUMMARY 01/07/2025 11:00 AM CDT PROTIME-INR Timed 12/09/2024 5:52 AM CDT EGFR Routine 12/08/2024 9:39 PM CDT DIFFERENTIAL AUTO Routine 12/08/2024 9:3 9 PM CDT MAGNESIUM Routine 12/08/2024 9:39 PM CDT PHOSPHORUS Routine 12/08/2024 9:39 PM CDT BASIC METABOLIC PANEL Routine 12/08/2024 9:39 PM CDT CBC WITH AUTO DIFFERENTIAL Routine 12/08/2024 9:39 PM CDT POTASSIUM, WHOLE BLOOD STAT 12/08/2024 4:15 AM CDT EGFR Routine 12/07/2024 8:44 PM CDT DIFFERENTIAL AUTO Routine 12/07/2024 8:4 4 PM CDT MAGNESIUM Routine 12/07/2024 8:44 PM CDT PHOSPHORUS Routine 12/07/2024 8:44 PM CDT BASIC METABOLIC PANEL Routine 12/07/2024 8:44 PM CDT CBC WITH AUTO DIFFERENTIAL Routine 12/07/2024 8:44 PM CDT XR KUB ED Urgent/IP Urgent 12/07/2024 12:59 PM CDT EGFR STAT 12/05/2024 10:05 AM CDT BASIC METABOLIC PANEL STAT 12/05/2024 10:05 AM CDT CBC WITHOUT DIFFERENTIAL STAT 12/05/2024 10:05 AM CDT PROTIME-INR Timed 12/05/2024 5:37 AM CDT APTT Timed 12/05/2024 5:37 AM CDT HEPARIN ANTI FACTOR XA ACTIVITY Timed 12/05/2024 5:37 AM CDT HEPARIN ANTI FACTOR XA ACTIVITY Timed 12/04/2024 10:09 PM CDT HEPARIN ANTI FACTOR XA ACTIVITY STAT 12/04/2024 3:23 PM CDT HEPARIN ANTI FACTOR XA ACTIVITY Timed 12/04/2024 6:50 AM CDT HEPARIN ANTI FACTOR XA ACTIVITY Timed 12/04/2024 12:53 AM CDT HEPARIN ANTI FACTOR XA ACTIVITY STAT 12/03/2024 5:56 PM CDT HEPARIN ANTI FACTOR XA ACTIVITY STAT 12/03/2024 10:00 AM CDT HEPARIN ANTI FACTOR XA ACTIVITY STAT 12/03/2024 3:09 AM CDT HEPARIN ANTI FACTOR XA ACTIVITY STAT 12/02/2024 7:49 PM CDT CBC WITHOUT DIFFERENTIAL Timed 12/02/2024 7:49 PM CDT EGFR Routine 12/01/2024 9:50 PM CDT HEPARIN ANTI FACTOR XA ACTIVITY STAT 12/01/2024 9:50 PM CDT MAGNESIUM Routine 12/01/2024 9:50 PM CDT PHOSPHORUS Routine 12/01/2024 9:50 PM CDT BASIC METABOLIC PANEL Routine 12/01/2024 9:50 PM CDT CBC WITHOUT DIFFERENTIAL Routine 12/01/2024 9:50 PM CDT HEPARIN ANTI FACTOR XA ACTIVITY STAT 12/01/2024 3:46 PM CDT HEPARIN ANTI FACTOR XA ACTIVITY STAT 12/01/2024 8:57 AM CDT HEPARIN ANTI FACTOR XA ACTIVITY STAT 12/01/2024 2:25 AM CDT INFECTION PREVENTION COLEEN AURIS PCR, SURVEILLANCE Routine 12/01/2024 2:23 AM CDT EGFR Routine 11/30/2024 7:17 PM CDT HEPARIN ANTI FACTOR XA ACTIVITY STAT 11/30/2024 7:17 PM CDT MAGNESIUM Routine 11/30/2024 7:17 PM CDT PHOSPHORUS Routine 11/30/2024 7:17 PM CDT BASIC METABOLIC PANEL Routine 11/30/2024 7:17 PM CDT CBC WITHOUT DIFFERENTIAL Routine 11/30/2024 7:17 PM CDT HEPARIN ANTI FACTOR XA ACTIVITY STAT 11/30/2024 12:09 PM CDT HEPARIN ANTI FACTOR XA ACTIVITY STAT 11/30/2024 5:13 AM CDT from Last 3 Months Results * RAD ONC ARIA SESSION SUMMARY (02/18/2025 10:41 AM CDT) Course Name [id number] ARIA Course Plan Date 12/22/2024 3:22 PM ARIA Elapsed Days 42 ARIA Treatment Start Date 01/07/2025 ARIA Treatment Site [id number]_6000 ARIA Dose Given To Date (cGy) 6,000 ARIA Session Dosage Given (cGy) 200 ARIA Plan ID H&N ARIA Fractions Treated 30 ARIA Prescribed Dose Per Fraction (cGy) 200 ARIA Prescribed Total Dose (cGy) 6,000 ARIA 02/18/2025 10:4 1 AM CDT us Not In File Miscellaneous RADIATION ONCOLOGY ORD ERABLES Final Result FRANCE * RAD ONC ARIA SESSION SUMMARY (02/17/2025 11:08 AM CDT) Course Name [id number] ARIA Course Plan Date 12/22/2024 3:22 PM ARIA Elapsed Days 41 ARIA Treatment Start Date 01/07/2025 ARIA Treatment Site [id number]_6000 ARIA Dose Given To Date (cGy) 5,800 ARIA Session Dosage Given (cGy) 200 ARIA Plan ID H&N ARIA Fractions Treated 29 ARIA Prescribed Dose Per Fraction (cGy) 200 ARIA Prescribed Total Dose (cGy) 6,000 ARIA 02/17/2025 11:0 8 AM CDT us Not In File Miscellaneous RADIATION ONCOLOGY ORD ERABLES Final Result Performing Organization Address [facility] de Phone Number FRANCE * RAD ONC ARIA SESSION SUMMARY (02/16/2025 11:04 AM CDT) Course Name [id number] ARIA Course Plan Date 12/22/2024 3:22 PM ARIA Elapsed Days 40 ARIA Treatment Start Date 01/07/2025 ARIA Treatment Site [id number]_6000 ARIA Dose Given To Date (cGy) 5,600 ARIA Session Dosage Given (cGy) 200 ARIA Plan ID H&N ARIA Fractions Treated 28 ARIA Prescribed Dose Per Fraction (cGy) 200 ARIA Prescribed Total Dose (cGy) 6,000 ARIA 02/16/2025 11:0 4 AM CDT us Not In File Miscellaneous RADIATION ONCOLOGY ORD ERABLES Final Result FRANCE * RAD ONC ARIA SESSION SUMMARY (02/13/2025 11:08 AM CDT) Course Name [email or web address] ARIA Course Plan Date 12/22/2024 3:22 PM ARIA Elapsed Days 37 ARIA Treatment Start Date 01/07/2025 ARIA Treatment Site [id number]_6000 ARIA Dose Given To Date (cGy) 5,400 ARIA Session Dosage Given (cGy) 200 ARIA Plan ID H&N ARIA Fractions Treated 27 ARIA Prescribed Dose Per Fraction (cGy) 200 ARIA Prescribed Total Dose (cGy) 6,000 ARIA 02/13/2025 11:0 8 AM CDT us Not In File Miscellaneous RADIATION ONCOLOGY ORD ERABLES Final Result Performing Organization Address [facility] Co de Phone Number ARIBill * RAD ONC ARIA SESSION SUMMARY (02/12/2025 11:05 AM CDT) Course Name [email or web address] ARIA Course Plan Date 12/22/2024 3:22 PM ARIA Elapsed Days 36 ARIA Treatment Start Date 01/07/2025 ARIA Treatment Site [id number]_6000 ARIA Dose Given To Date (cGy) 5,200 ARIA Session Dosage Given (cGy) 200 ARIA Plan ID H&N ARIA Fractions Treated 26 ARIA Prescribed Dose Per Fraction (cGy) 200 ARIA Prescribed Total Dose (cGy) 6,000 ARIA 02/12/2025 11:0 5 AM CDT us Not In File Miscellaneous RADIATION ONCOLOGY ORD ERABLES Final Result ARIA * RAD ONC ARIA SESSION SUMMARY (02/11/2025 11:03 AM CDT) Course Name [email or web address] ARIA Course Plan Date 12/22/2024 3:22 PM ARIA Elapsed Days 35 ARIA Treatment Start Date 01/07/2025 ARIA Treatment Site [id number]_6000 ARIA Dose Given To Date (cGy) 5,000 ARIA Session Dosage Given (cGy) 200 ARIA Plan ID H&N ARIA Fractions Treated 25 ARIA Prescribed Dose Per Fraction (cGy) 200 ARIA Prescribed Total Dose (cGy) 6,000 ARIA 02/11/2025 11:0 3 AM CDT us Not In File Miscellaneous RADIATION ONCOLOGY ORD ERABLES Final Result Performing Organization Address [facility] Co de Phone Number ARIA * RAD ONC ARIA SESSION SUMMARY (02/10/2025 11:01 AM CDT) Course Name [id number] ARIA Course Plan Date 12/22/2024 3:22 PM ARIA Elapsed Days 34 ARIA Treatment Start Date 01/07/2025 ARIA Treatment Site [id number]_6000 ARIA Dose Given To Date (cGy) 4,800 ARIA Session Dosage Given (cGy) 200 ARIA Plan ID H&N ARIA Fractions Treated 24 ARIA Prescribed Dose Per Fraction (cGy) 200 ARIA Prescribed Total Dose (cGy) 6,000 ARIA 02/10/2025 11:0 1 AM CDT us Not In File Miscellaneous RADIATION ONCOLOGY ORD ERABLES Final Result Performing Organization Address [facility] de Phone Number ARIA * RAD ONC ARIA SESSION SUMMARY (02/09/2025 11:31 AM CDT) Course Name [id number] ARIA Course Plan Date 12/22/2024 3:22 PM ARIA Elapsed Days 33 ARIA Treatment Start Date 01/07/2025 ARIA Treatment Site [id number]_6000 ARIA Dose Given To Date (cGy) 4,600 ARIA Session Dosage Given (cGy) 200 ARIA Plan ID H&N ARIA Fractions Treated 23 ARIA Prescribed Dose Per Fraction (cGy) 200 ARIA Prescribed Total Dose (cGy) 6,000 ARIA 02/09/2025 11:3 1 AM CDT us Not In File Miscellaneous RADIATION ONCOLOGY ORD ERABLES Final Result FRANCE Stark RAD ONC ARIA SESSION SUMMARY (02/06/2025 11:21 AM CDT) Course Name [email or web address] ARIA Course Plan Date 12/22/2024 3:22 PM ARIA Elapsed Days 30 ARIA Treatment Start Date 01/07/2025 ARIA Treatment Site [id number]_6000 ARIA Dose Given To Date (cGy) 4,400 ARIA Session Dosage Given (cGy) 200 ARIA Plan ID H&N ARIA Fractions Treated 22 ARIA Prescribed Dose Per Fraction (cGy) 200 ARIA Prescribed Total Dose (cGy) 6,000 ARIA 02/06/2025 11:2 1 AM CDT us Not In File Miscellaneous RADIATION ONCOLOGY ORD ERABLES Final Result Performing Organization Address [facility] Co de Phone Number FRANCE * RAD ONC ARIA SESSION SUMMARY (02/05/2025 11:04 AM CDT) Course Name [email or web address] ARIA Course Plan Date 12/22/2024 3:22 PM ARIA Elapsed Days 29 ARIA Treatment Start Date 01/07/2025 ARIA Treatment Site [id number]_6000 ARIA Dose Given To Date (cGy) 4,200 ARIA Session Dosage Given (cGy) 200 ARIA Plan ID H&N ARIA Fractions Treated 21 ARIA Prescribed Dose Per Fraction (cGy) 200 ARIA Prescribed Total Dose (cGy) 6,000 ARIA 02/05/2025 11:0 4 AM CDT us Not In File Miscellaneous RADIATION ONCOLOGY ORD ERABLES Final Result FRANCE * RAD ONC ARIA SESSION SUMMARY (02/04/2025 11:08 AM CDT) Course Name [email or web address] ARIA Course Plan Date 12/22/2024 3:22 PM ARIA Elapsed Days 28 ARIA Treatment Start Date 01/07/2025 ARIA Treatment Site [id number]_6000 ARIA Dose Given To Date (cGy) 4,000 ARIA Session Dosage Given (cGy) 200 ARIA Plan ID H&N ARIA Fractions Treated 20 ARIA Prescribed Dose Per Fraction (cGy) 200 ARIA Prescribed Total Dose (cGy) 6,000 ARIA 02/04/2025 11:0 8 AM CDT us Not In File Miscellaneous RADIATION ONCOLOGY ORD ERABLES Final Result ARIA * RAD ONC ARIA SESSION SUMMARY (02/03/2025 10:47 AM CDT) Course Name [email or web address] ARIA Course Plan Date 12/22/2024 3:22 PM ARIA Elapsed Days 27 ARIA Treatment Start Date 01/07/2025 ARIA Treatment Site [id number]_6000 ARIA Dose Given To Date (cGy) 3,800 ARIA Session Dosage Given (cGy) 200 ARIA Plan ID H&N ARIA Fractions Treated 19 ARIA Prescribed Dose Per Fraction (cGy) 200 ARIA Prescribed Total Dose (cGy) 6,000 ARIA 02/03/2025 10:4 7 AM CDT us Not In File Miscellaneous RADIATION ONCOLOGY ORD ERABLES Final Result ARIA * RAD ONC ARIA SESSION SUMMARY (02/02/2025 11:31 AM CDT) Course Name [id number] ARIA Course Plan Date 12/22/2024 3:22 PM ARIA Elapsed Days 26 ARIA Treatment Start Date 01/07/2025 ARIA Treatment Site [id number]_6000 ARIA Dose Given To Date (cGy) 3,600 ARIA Session Dosage Given (cGy) 200 ARIA Plan ID H&N ARIA Fractions Treated 18 ARIA Prescribed Dose Per Fraction (cGy) 200 ARIA Prescribed Total Dose (cGy) 6,000 ARIA 02/02/2025 11:3 1 AM CDT us Not In File Miscellaneous RADIATION ONCOLOGY ORD ERABLES Final Result KERENA * RAD ONC ARIA SESSION SUMMARY (01/30/2025 10:59 AM CDT) Course Name [email or web address] ARIA Course Plan Date 12/22/2024 3:22 PM ARIA Elapsed Days 23 ARIA Treatment Start Date 01/07/2025 ARIA Treatment Site [id number]_6000 ARIA Dose Given To Date (cGy) 3,400 ARIA Session Dosage Given (cGy) 200 ARIA Plan ID H&N ARIA Fractions Treated 17 ARIA Prescribed Dose Per Fraction (cGy) 200 ARIA Prescribed Total Dose (cGy) 6,000 ARIA 01/30/2025 10:5 9 AM CDT us Not In File Miscellaneous RADIATION ONCOLOGY ORD ERABLES Final Result ARIA * RAD ONC ARIA SESSION SUMMARY (01/29/2025 10:41 AM CDT) Course Name [email or web address] ARIA Course Plan Date 12/22/2024 3:22 PM ARIA Elapsed Days 22 ARIA Treatment Start Date 01/07/2025 ARIA Treatment Site [id number]_6000 ARIA Dose Given To Date (cGy) 3,200 ARIA Session Dosage Given (cGy) 200 ARIA Plan ID H&N ARIA Fractions Treated 16 ARIA Prescribed Dose Per Fraction (cGy) 200 ARIA Prescribed Total Dose (cGy) 6,000 ARIA 01/29/2025 10:4 1 AM CDT us Not In File Miscellaneous RADIATION ONCOLOGY ORD ERABLES Final Result ARIA * RAD ONC ARIA SESSION SUMMARY (01/28/2025 11:13 AM CDT) Course Name [email or web address] ARIA Course Plan Date 12/22/2024 3:22 PM ARIA Elapsed Days 21 ARIA Treatment Start Date 01/07/2025 ARIA Treatment Site [id number]_6000 ARIA Dose Given To Date (cGy) 3,000 ARIA Session Dosage Given (cGy) 200 ARIA Plan ID H&N ARIA Fractions Treated 15 ARIA Prescribed Dose Per Fraction (cGy) 200 ARIA Prescribed Total Dose (cGy) 6,000 ARIA 01/28/2025 11:1 3 AM CDT us Not In File Miscellaneous RADIATION ONCOLOGY ORD ERABLES Final Result Performing Organization Address [facility] Co de Phone Number FRANCE * RAD ONC ARIA SESSION SUMMARY (01/27/2025 11:11 AM CDT) Course Name [email or web address] ARIA Course Plan Date 12/22/2024 3:22 PM ARIA Elapsed Days 20 ARIA Treatment Start Date 01/07/2025 ARIA Treatment Site PTV_6000 ARIA Dose Given To Date (cGy) 2,800 ARIA Session Dosage Given (cGy) 200 ARIA Plan ID H&N ARIA Fractions Treated 14 ARIA Prescribed Dose Per Fraction (cGy) 200 ARIA Prescribed Total Dose (cGy) 6,000 ARIA 01/27/2025 11:1 1 AM CDT us Not In File Miscellaneous RADIATION ONCOLOGY ORD ERABLES Final Result ARIA * RAD ONC ARIA SESSION SUMMARY (01/26/2025 11:21 AM CDT) Course Name [email or web address]_HN ARIA Course Plan Date 12/22/2024 3:22 PM ARIA Elapsed Days 19 ARIA Treatment Start Date 01/07/2025 ARIA Treatment Site [id number]_6000 ARIA Dose Given To Date (cGy) 2,600 ARIA Session Dosage Given (cGy) 200 ARIA Plan ID H&N ARIA Fractions Treated 13 ARIA Prescribed Dose Per Fraction (cGy) 200 ARIA Prescribed Total Dose (cGy) 6,000 ARIA 01/26/2025 11:2 1 AM CDT us Not In File Miscellaneous RADIATION ONCOLOGY ORD ERABLES Final Result FR[place] * RAD ONC ARIA SESSION SUMMARY (01/22/2025 11:21 AM CDT) Course Name [email or web address] ARIA Course Plan Date 12/22/2024 3:22 PM ARIA Elapsed Days 15 ARIA Treatment Start Date 01/07/2025 ARIA Treatment Site PTV_6000 ARIA Dose Given To Date (cGy) 2,400 ARIA Session Dosage Given (cGy) 200 ARIA Plan ID H&N ARIA Fractions Treated 12 ARIA Prescribed Dose Per Fraction (cGy) 200 ARIA Prescribed Total Dose (cGy) 6,000 ARIA 01/22/2025 11:2 1 AM CDT us Not In File Miscellaneous RADIATION ONCOLOGY ORD ERABLES Final Result Performing Organization Address City/[facility] Co de Phone Number ARIBill * RAD ONC ARIA SESSION SUMMARY (01/21/2025 11:16 AM CDT) Course Name [email or web address] ARIA Course Plan Date 12/22/2024 3:22 PM ARIA Elapsed Days 14 ARIA Treatment Start Date 01/07/2025 ARIA Treatment Site [id number]_6000 ARIA Dose Given To Date (cGy) 2,200 ARIA Session Dosage Given (cGy) 200 ARIA Plan ID H&N ARIA Fractions Treated 11 ARIA Prescribed Dose Per Fraction (cGy) 200 ARIA Prescribed Total Dose (cGy) 6,000 ARIA 01/21/2025 11:1 6 AM CDT us Not In File Miscellaneous RADIATION ONCOLOGY ORD ERABLES Final Result ARIA * RAD ONC ARIA SESSION SUMMARY (01/20/2025 11:15 AM CDT) Course Name [email or web address] ARIA Course Plan Date 12/22/2024 3:22 PM ARIA Elapsed Days 13 ARIA Treatment Start Date 01/07/2025 ARIA Treatment Site PTV_6000 ARIA Dose Given To Date (cGy) 2,000 ARIA Session Dosage Given (cGy) 200 ARIA Plan ID H&N ARIA Fractions Treated 10 ARIA Prescribed Dose Per Fraction (cGy) 200 ARIA Prescribed Total Dose (cGy) 6,000 ARIA 01/20/2025 11:1 5 AM CDT us Not In File Miscellaneous RADIATION ONCOLOGY ORD ERABLES Final Result Performing Organization Address [facility]/ZIP Co de Phone Number ARIA * RAD ONC ARIA SESSION SUMMARY (01/19/2025 11:12 AM CDT) Course Name [id number] ARIA Course Plan Date 12/22/2024 3:22 PM ARIA Elapsed Days 12 ARIA Treatment Start Date 01/07/2025 ARIA Treatment Site [id number]_6000 ARIA Dose Given To Date (cGy) 1,800 ARIA Session Dosage Given (cGy) 200 ARIA Plan ID H&N ARIA Fractions Treated 9 ARIA Prescribed Dose Per Fraction (cGy) 200 ARIA Prescribed Total Dose (cGy) 6,000 ARIA 01/19/2025 11:1 2 AM CDT us Not In File Miscellaneous RADIATION ONCOLOGY ORD ERABLES Final Result ARIA * RAD ONC ARIA SESSION SUMMARY (01/16/2025 11:00 AM CDT) Course Name [id number] ARIA Course Plan Date 12/22/2024 3:22 PM ARIA Elapsed Days 9 ARIA Treatment Start Date 01/07/2025 ARIA Treatment Site [id number]_6000 ARIA Dose Given To Date (cGy) 1,600 ARIA Session Dosage Given (cGy) 200 ARIA Plan ID H&N ARIA Fractions Treated 8 ARIA Prescribed Dose Per Fraction (cGy) 200 ARIA Prescribed Total Dose (cGy) 6,000 ARIA 01/16/2025 11:0 0 AM CDT us Not In File Miscellaneous RADIATION ONCOLOGY ORD ERABLES Final Result ARIA * RAD ONC ARIA SESSION SUMMARY (01/15/2025 10:49 AM CDT) Course Name [id number] ARIA Course Plan Date 12/22/2024 3:22 PM ARIA Elapsed Days 8 ARIA Treatment Start Date 01/07/2025 ARIA Treatment Site [id number]_6000 ARIA Dose Given To Date (cGy) 1,400 ARIA Session Dosage Given (cGy) 200 ARIA Plan ID H&N ARIA Fractions Treated 7 ARIA Prescribed Dose Per Fraction (cGy) 200 ARIA Prescribed Total Dose (cGy) 6,000 ARIA 01/15/2025 10:4 9 AM CDT us Not In File Miscellaneous RADIATION ONCOLOGY ORD ERABLES Final Result Performing Organization Address [facility] Co de Phone Number ARIA * RAD ONC ARIA SESSION SUMMARY (01/14/2025 10:42 AM CDT) Course Name [id number] ARIA Course Plan Date 12/22/2024 3:22 PM ARIA Elapsed Days 7 ARIA Treatment Start Date 01/07/2025 ARIA Treatment Site [id number]_6000 ARIA Dose Given To Date (cGy) 1,200 ARIA Session Dosage Given (cGy) 200 ARIA Plan ID H&N ARIA Fractions Treated 6 ARIA Prescribed Dose Per Fraction (cGy) 200 ARIA Prescribed Total Dose (cGy) 6,000 ARIA 01/14/2025 10:4 2 AM CDT us Not In File Miscellaneous RADIATION ONCOLOGY ORD ERABLES Final Result ARIA * RAD ONC ARIA SESSION SUMMARY (01/13/2025 10:47 AM CDT) Course Name [email or web address] ARIA Course Plan Date 12/22/2024 3:22 PM ARIA Elapsed Days 6 ARIA Treatment Start Date 01/07/2025 ARIA Treatment Site [id number]_6000 ARIA Dose Given To Date (cGy) 1,000 ARIA Session Dosage Given (cGy) 200 ARIA Plan ID H&N ARIA Fractions Treated 5 ARIA Prescribed Dose Per Fraction (cGy) 200 ARIA Prescribed Total Dose (cGy) 6,000 ARIA 01/13/2025 10:4 7 AM CDT us Not In File Miscellaneous RADIATION ONCOLOGY ORD ERABLES Final Result Performing Organization Address [facility] Co de Phone Number ARIA * RAD ONC ARIA SESSION SUMMARY (01/12/2025 11:28 AM CDT) Course Name [email or web address] ARIA Course Plan Date 12/22/2024 3:22 PM ARIA Elapsed Days 5 ARIA Treatment Start Date 01/07/2025 ARIA Treatment Site [id number]_6000 ARIA Dose Given To Date (cGy) 800 ARIA Session Dosage Given (cGy) 200 ARIA Plan ID H&N ARIA Fractions Treated 4 ARIA Prescribed Dose Per Fraction (cGy) 200 ARIA Prescribed Total Dose (cGy) 6,000 ARIA 01/12/2025 11:2 8 AM CDT us Not In File Miscellaneous RADIATION ONCOLOGY ORD ERABLES Final Result ARIA * RAD ONC ARIA SESSION SUMMARY (01/09/2025 11:03 AM CDT) Course Name [email or web address] ARIA Course Plan Date 12/22/2024 3:22 PM ARIA Elapsed Days 2 ARIA Treatment Start Date 01/07/2025 ARIA Treatment Site [id number]_6000 ARIA Dose Given To Date (cGy) 600 ARIA Session Dosage Given (cGy) 200 ARIA Plan ID H&N ARIA Fractions Treated 3 ARIA Prescribed Dose Per Fraction (cGy) 200 ARIA Prescribed Total Dose (cGy) 6,000 ARIA 01/09/2025 11:0 3 AM CDT us Not In File Miscellaneous RADIATION ONCOLOGY ORD ERABLES Final Result Performing Organization Address City/[facility] Co de Phone Number ARIA * RAD ONC ARIA SESSION SUMMARY (01/08/2025 10:56 AM CDT) Course Name [id number] ARIA Course Plan Date 12/22/2024 3:22 PM ARIA Elapsed Days 1 ARIA Treatment Start Date 01/07/2025 ARIA Treatment Site [id number] ARIA Dose Given To Date (cGy) 400 ARIA Session Dosage Given (cGy) 200 ARIA Plan ID H&N ARIA Fractions Treated 2 ARIA Prescribed Dose Per Fraction (cGy) 200 ARIA Prescribed Total Dose (cGy) 6,000 ARIA 01/08/2025 10:5 6 AM CDT us Not In File Miscellaneous RADIATION ONCOLOGY ORD ERABLES Final Result Performing Organization Address [facility] de Phone Number [place] * RAD ONC ARIA SESSION SUMMARY (01/07/2025 11:00 AM CDT) Course Name [id number] ARIA Course Plan Date 12/22/2024 3:22 PM ARIA Elapsed Days 0 ARIA Treatment Start Date 01/07/2025 ARIA Treatment Site [id number] ARIA Dose Given To Date (cGy) 200 ARIA Session Dosage Given (cGy) 200 ARIA Plan ID H&N ARIA Fractions Treated 1 ARIA Prescribed Dose Per Fraction (cGy) 200 ARIA Prescribed Total Dose (cGy) 6,000 ARIA 01/07/2025 11:0 0 AM CDT us Not In File Miscellaneous RADIATION ONCOLOGY ORD ERABLES Final Result Performing Organization Address City/[facility] Co de Phone Number ARIA * Protime-INR (12/09/2024 5:52 AM CDT) PT 12.0 9.7 - 13.0 sec INR 1.11 0.90 - 1.20 [facility] Comment: Interpretive data Oral anticoagulant therapeutic ranges: Venous thromboembolism prophylaxis or treatment: 2.0-3.0 CARDIOLOGY Standard range: 2.0-3.0 High-intensity range: 2.5-3.5 Refer to indication-specific guidelines for appropriate target ranges for prosthetic heart valve replacement. Current interpretive data was last revised on 2019. Blood 12/09/2024 5:52 AM CDT 12/09/2024 6:10 AM CDT Narrative [facility] - 12/09/2024 6:16 AM CDT While on warfarin us Anne Laboy PA LAB BLOOD ORDERABLES Final Resul t Performing Organization Address [facility] Co de Phone Number [facility] Department [place] [address] * eGFR (12/08/2024 9:39 PM CDT) eGFR >90 >=60 mL/min/1. 73 m2 Comment: Interpretive Data Reference Interval Normal >/= 90 mL/min/1.73m2 Mildly decreased* 60 - 89 mL/min/1.73m2 Mildly to moderately decreased 45 - 59 mL/min/1.73m2 Moderately to severely decreased 30 - 44 mL/min/1.73m2 Severely decreased 15 - 29 mL/min/1.73m2 Kidney Failure < 15 mL/min/1.73m2 *Relative to young adult level Estimated glomerular filtration rate is determined by the 2020 CKD-EPI equation recommended by the National Kidney Foundation (A Unifying Approach to GFR Estimation: Recommendations of the NKF-ASK Task Force on Reassessing the Inclusion of Race in Diagnosing Kidney Disease, JASN 202). The CKD-EPI equation should not be used for patients with unstable renal function and has not been validated in children and those over 70. Current interpretive data was last reviewed 2021. Blood 12/08/2024 9:39 PM CDT 12/08/2024 10:02 PM CDT Anne LYNN LAB BLOOD ORDERABLES Final Resul t [facility] [place] [address] * (ABNORMAL) Differential, auto (12/08/2024 9:39 PM CDT) Neutrophil abs 11.57(H) 1.50 - 6.50 K/cumm Imm gran abs 0.13(H) 0.00 - 0.10 K/cumm [facility] Lymphocyte abs 0.79(L) 0.80 - 3.30 K/cumm [facility] Monocyte abs 1.12(H) 0.20 - 0.80 K/cumm [facility] Eosinophil abs 0.27 0.00 - 0.50 K/cumm [facility] Basophil abs 0.04 0.00 - 0.10 K/cumm [facility] Neutrophil pct 83.2 % [facility] Comment: Interpretive Data Percent cell count reference ranges are not reported, since discordance with absolute values may lead to misinterpretation of CBC data. Current Interpretive Data was last revised on 2017. Imm gran pct 0.9 % [facility] Comment: Interpretive Data Percent cell count reference ranges are not reported, since discordance with absolute values may lead to misinterpretation of CBC data. Current Interpretive Data was last revised on 2017. Lymphocyte pct 5.7 % [facility] Comment: Interpretive Data Percent cell count reference ranges are not reported, since discordance with absolute values may lead to misinterpretation of CBC data. Current Interpretive Data was last revised on 2017. Monocyte pct 8.0 % [facility] Comment: Interpretive Data Percent cell count reference ranges are not reported, since discordance with absolute values may lead to misinterpretation of CBC data. Current Interpretive Data was last revised on 2017. Eosinophil pct 1.9 % [facility] Comment: Interpretive Data Percent cell count reference ranges are not reported, since discordance with absolute values may lead to misinterpretation of CBC data. Current Interpretive Data was last revised on 2017. Basophil pct 0.3 % [facility] Comment: Interpretive Data Percent cell count reference ranges are not reported, since discordance with absolute values may lead to misinterpretation of CBC data. Current Interpretive Data was last revised on 2017. Blood 12/08/2024 9:39 PM CDT 12/08/2024 10:04 PM CDT us Anne LYNN LAB BLOOD ORDERABLES Final Resul t [facility] [place] [address] * (ABNORMAL) CBC with auto differential (12/08/2024 9:39 PM CDT) WBC 13.92(H) 3.80 - 9.90 K/cumm Hgb 9.4(L) 13.0 - 17.5 g/dL [facility] Hct 27.7(L) 38.9 - 50.3 % [facility] Plt 368 150 - 400 K/cumm [facility] MPV 9.3 9.1 - 12.3 fL [facility] RBC 2.98(L) 4.30 - 5.80 M/cumm [facility] MCV 93.0 81.3 - 96.4 fL [facility] MCH 31.5 27.1 - 33.3 pg [facility] MCHC 33.9 32.3 - 35.7 g/dL [facility] RDW CV 14.4 11.1 - 14.9 % [facility] RDW SD 48.1 35.7 - 48.1 fL [facility] NRBC abs 0.00 0.00 - 0.01 K/cumm [facility] Blood 12/08/2024 9:39 PM CDT 12/08/2024 10:04 PM CDT us Anne Laboy PA LAB BLOOD ORDERABLES Final Resul t Performing Organization Address City/[facility] [place] [address] * Phosphorus (12/08/2024 9:39 PM CDT) [facility] Phosphorus, pl 4.1 2.3 - 4.5 mg/dL Blood 12/08/2024 9:39 PM CDT 12/08/2024 10:02 PM CDT us Anne Laboy PA LAB BLOOD ORDERABLES Final Resul t Performing Organization Address [facility] Co de Phone Number [facility] [place] [address] * Magnesium (12/08/2024 9:39 PM CDT) [facility] Magnesium 2.3 1.4 - 2.5 mg/dL Blood 12/08/2024 9:39 PM CDT 12/08/2024 10:02 PM CDT Anne Laboy PA LAB BLOOD ORDERABLES Final Resul t Performing Organization Address [facility] Co de Phone Number [facility] [place] [address] * (ABNORMAL) Basic metabolic panel (12/08/2024 9:39 PM CDT) [facility] Sodium 136 135 - 145 mmol/L Potassium, pl 5.1(H) 3.3 - 4.9 mmol/L [facility] Chloride 99 97 - 110 mmol/L [facility] CO2 29 22 - 32 mmol/L [facility] Anion gap 8 2 - 15 mmol/L [facility] BUN 32(H) 6 - 25 mg/dL [facility] Creatinine 0.86 0.80 - 1.30 mg/dL [facility] Glucose 98 70 - 199 mg/dL [facility] Comment: Interpretive Data Fasting glucose >/= 126 mg/dl is diagnostic for diabetes. Fasting is defined as no caloric intake for at least 8 hours. Fasting glucose between 100 mg/dl to 125 mg/dl is diagnostic of prediabetes. In a patient with classic symptoms of hyperglycemia or hyperglycemic crisis, a random glucose >/= 200 mg/dl is diagnostic for diabetes. In the absence of unequivocal hyperglycemia, results should be confirmed by repeat testing. The classification and Diagnosis of Diabetes Diabetes Care 2021; 46: S19-S40. Current interpretive data was last revised 2022. Calcium 9.8 8.5 - 10.3 mg/dL [facility] Blood 12/08/2024 9:39 PM CDT 12/08/2024 10:02 PM CDT us Anne LYNN LAB BLOOD ORDERABLES Final Resul t Performing Organization Address [facility] Co de Phone Number [facility] Department [place] [address] * (ABNORMAL) Potassium, whole blood (12/08/2024 4:15 AM CDT) Potassium, bld 5.2(H) 3.3 - 4.9 mmol/L Blood 12/08/2024 4:15 AM CDT 12/08/2024 4:25 AM CDT us Khanh Salazar MD LAB BLOOD ORDERABLES Final Res ult Performing Organization Address City/[facility] Co de Phone Number [facility] Department [place] [address] * eGFR (12/07/2024 8:44 PM CDT) eGFR 86 >=60 mL/min/1. 73 m2 Comment: Interpretive Data Reference Interval Normal >/= 90 mL/min/1.73m2 Mildly decreased* 60 - 89 mL/min/1.73m2 Mildly to moderately decreased 45 - 59 mL/min/1.73m2 Moderately to severely decreased 30 - 44 mL/min/1.73m2 Severely decreased 15 - 29 mL/min/1.73m2 Kidney Failure < 15 mL/min/1.73m2 *Relative to young adult level Estimated glomerular filtration rate is determined by the 2020 CKD-EPI equation recommended by the National Kidney Foundation (A Unifying Approach to GFR Estimation: Recommendations of the NKF-ASK Task Force on Reassessing the Inclusion of Race in Diagnosing Kidney Disease, JASN 2020). The CKD-EPI equation should not be used for patients with unstable renal function and has not been validated in children and those over 70. Current interpretive data was last reviewed 2021. Blood 12/07/2024 8:44 PM CDT 12/07/2024 9:33 PM CDT us Khanh Salazar MD LAB BLOOD ORDERABLES Final Res ult [facility] Department [place] [address] * (ABNORMAL) Differential, auto (12/07/2024 8:44 PM CDT) Neutrophil abs 11.22(H) 1.50 - 6.50 K/cumm Imm gran abs 0.19(H) 0.00 - 0.10 K/cumm [facility] Lymphocyte abs 1.33 0.80 - 3.30 K/cumm [facility] Monocyte abs 1.67(H) 0.20 - 0.80 K/cumm [facility] Eosinophil abs 0.29 0.00 - 0.50 K/cumm [facility] Basophil abs 0.04 0.00 - 0.10 K/cumm [facility] Neutrophil pct 76.1 % [facility] Comment: Interpretive Data Percent cell count reference ranges are not reported, since discordance with absolute values may lead to misinterpretation of CBC data. Current Interpretive Data was last revised on 2017. Imm gran pct 1.3 % [facility] Comment: Interpretive Data Percent cell count reference ranges are not reported, since discordance with absolute values may lead to misinterpretation of CBC data. Current Interpretive Data was last revised on 2017. Lymphocyte pct 9.0 % [facility] Comment: Interpretive Data Percent cell count reference ranges are not reported, since discordance with absolute values may lead to misinterpretation of CBC data. Current Interpretive Data was last revised on 2017. Monocyte pct 11.3 % [facility] Comment: Interpretive Data Percent cell count reference ranges are not reported, since discordance with absolute values may lead to misinterpretation of CBC data. Current Interpretive Data was last revised on 2017. Eosinophil pct 2.0 % [facility] Comment: Interpretive Data Percent cell count reference ranges are not reported, since discordance with absolute values may lead to misinterpretation of CBC data. Current Interpretive Data was last revised on 2017. Basophil pct 0.3 % [facility] Comment: Interpretive Data Percent cell count reference ranges are not reported, since discordance with absolute values may lead to misinterpretation of CBC data. Current Interpretive Data was last revised on 2017. Blood 12/07/2024 8:44 PM CDT 12/07/2024 9:33 PM CDT us Khanh Salazar MD LAB BLOOD ORDERABLES Final Res ult [facility] Department [place] [address] * (ABNORMAL) CBC with auto differential (12/07/2024 8:44 PM CDT) WBC 14.74(H) 3.80 - 9.90 K/cumm Hgb 9.6(L) 13.0 - 17.5 g/dL [facility] Hct 28.9(L) 38.9 - 50.3 % [facility] Plt 435(H) 150 - 400 K/cumm [facility] MPV 9.3 9.1 - 12.3 fL [facility] RBC 3.10(L) 4.30 - 5.80 M/cumm [facility] MCV 93.2 81.3 - 96.4 fL [facility] MCH 31.0 27.1 - 33.3 pg [facility] MCHC 33.2 32.3 - 35.7 g/dL [facility] RDW CV 14.5 11.1 - 14.9 % [facility] RDW SD 48.2(H) 35.7 - 48.1 fL [facility] NRBC abs 0.00 0.00 - 0.01 K/cumm [facility] Blood 12/07/2024 8:44 PM CDT 12/07/2024 9:33 PM CDT us Khanh Salazar MD LAB BLOOD ORDERABLES Final Res ult Performing Organization Address City/[facility] Co de Phone Number [facility] [place] [address] * Phosphorus (12/07/2024 8:44 PM CDT) Phosphorus, pl 4.5 2.3 - 4.5 mg/dL Blood 12/07/2024 8:44 PM CDT 12/07/2024 9:33 PM CDT us Khanh Salazar MD LAB BLOOD ORDERABLES Final Res ult Performing Organization Address [facility] Co de Phone Number [facility] [place] [address] * Magnesium (12/07/2024 8:44 PM CDT) Magnesium 2.4 1.4 - 2.5 mg/dL Blood 12/07/2024 8:44 PM CDT 12/07/2024 9:33 PM CDT us Khanh Salazar MD LAB BLOOD ORDERABLES Final Res ult Performing Organization Address City/[facility]/ZIP Co de Phone Number [facility] Department [place] [address] * (ABNORMAL) Basic metabolic panel (12/07/2024 8:44 PM CDT) Sodium 135 135 - 145 mmol/L Potassium, pl 5.6(H) 3.3 - 4.9 mmol/L [facility] Chloride 96(L) 97 - 110 mmol/L [facility] CO2 30 22 - 32 mmol/L [facility] Anion gap 9 2 - 15 mmol/L [facility] BUN 28(H) 6 - 25 mg/dL [facility] Creatinine 0.98 0.80 - 1.30 mg/dL [facility] Glucose 82 70 - 199 mg/dL [facility] Comment: Interpretive Data Fasting glucose >/= 126 mg/dl is diagnostic for diabetes. Fasting is defined as no caloric intake for at least 8 hours. Fasting glucose between 100 mg/dl to 125 mg/dl is diagnostic of prediabetes. In a patient with classic symptoms of hyperglycemia or hyperglycemic crisis, a random glucose >/= 200 mg/dl is diagnostic for diabetes. In the absence of unequivocal hyperglycemia, results should be confirmed by repeat testing. The classification and Diagnosis of Diabetes Diabetes Care 2021; 46: S19-S40. Current interpretive data was last revised 2022. Calcium 9.4 8.5 - 10.3 mg/dL [facility] Blood 12/07/2024 8:44 PM CDT 12/07/2024 9:33 PM CDT us Khanh Salazar MD LAB BLOOD ORDERABLES Final Res ult [facility] [place] [address] * XR Kub (12/07/2024 12:59 PM CDT) Anatomical Region Laterality Modality Body, Abdomen N/A Digital Radiogra phy 12/08/2024 8:34 AM CDT Impressions 12/08/2024 8:34 AM CDT Weighted enteric tube tip overlies gastric lumen with stylet in place. Electronically signed by: Travis Eddy M.D. Narrative 12/08/2024 8:34 AM CDT EXAMINATION: Abdomen, one view. HISTORY: Check tube placement. COMPARISON: 11/28/2024 Procedure Note Travis Eddy MD - 12/08/2024 EXAMINATION: Abdomen, one view. HISTORY: Check tube placement. COMPARISON: 11/28/2024 IMPRESSION: Weighted enteric tube tip overlies gastric lumen with stylet in place. Electronically signed by: rTavis Eddy M.D. us Khanh Salazar MD IMG XR PROCEDURES Final Result * eGFR (12/05/2024 10:05 AM CDT) eGFR >90 >=60 mL/min/1. 73 m2 Comment: Interpretive Data Reference Interval Normal >/= 90 mL/min/1.73m2 Mildly decreased* 60 - 89 mL/min/1.73m2 Mildly to moderately decreased 45 - 59 mL/min/1.73m2 Moderately to severely decreased 30 - 44 mL/min/1.73m2 Severely decreased 15 - 29 mL/min/1.73m2 Kidney Failure < 15 mL/min/1.73m2 *Relative to young adult level Estimated glomerular filtration rate is determined by the 2020 CKD-EPI equation recommended by the National Kidney Foundation (A Unifying Approach to GFR Estimation: Recommendations of the NKF-ASK Task Force on Reassessing the Inclusion of Race in Diagnosing Kidney Disease, JASN 2020). The CKD-EPI equation should not be used for patients with unstable renal function and has not been validated in children and those over 70. Current interpretive data was last reviewed 2021. Blood 12/05/2024 10:0 5 AM CDT 12/05/2024 10:18 AM CDT us Jackelyn LYNN LAB BLOOD ORDERABLES Final Re sult [facility] Department [place] [address] * (ABNORMAL) CBC without differential (12/05/2024 10:05 AM CDT) [facility] WBC 14.14(H) 3.80 - 9.90 K/cumm Hgb 9.0(L) 13.0 - 17.5 g/dL [facility] Hct 27.4(L) 38.9 - 50.3 % [facility] Plt 325 150 - 400 K/cumm [facility] MPV 9.1 9.1 - 12.3 fL [facility] RBC 2.89(L) 4.30 - 5.80 M/cumm [facility] MCV 94.8 81.3 - 96.4 fL [facility] MCH 31.1 27.1 - 33.3 pg [facility] MCHC 32.8 32.3 - 35.7 g/dL [facility] RDW CV 14.3 11.1 - 14.9 % [facility] RDW SD 48.5(H) 35.7 - 48.1 fL [facility] NRBC abs 0.00 0.00 - 0.01 K/cumm [facility] Blood 12/05/2024 10:0 5 AM CDT 12/05/2024 10:19 AM CDT Narrative [facility] - 12/05/2024 10:25 AM CDT Baseline prior to enoxaparin initiation. Jackelyn LYNN LAB BLOOD ORDERABLES Final Re sult [facility] Department [place] [address] * (ABNORMAL) Basic metabolic panel (12/05/2024 10:05 AM CDT) [facility] Sodium 138 135 - 145 mmol/L Potassium, pl 4.1 3.3 - 4.9 mmol/L [facility] Chloride 101 97 - 110 mmol/L [facility] CO2 30 22 - 32 mmol/L [facility] Anion gap 7 2 - 15 mmol/L [facility] BUN 21 6 - 25 mg/dL [facility] Creatinine 0.79(L) 0.80 - 1.30 mg/dL [facility] Glucose 137 70 - 199 mg/dL [facility] Comment: Interpretive Data Fasting glucose >/= 126 mg/dl is diagnostic for diabetes. Fasting is defined as no caloric intake for at least 8 hours. Fasting glucose between 100 mg/dl to 125 mg/dl is diagnostic of prediabetes. In a patient with classic symptoms of hyperglycemia or hyperglycemic crisis, a random glucose >/= 200 mg/dl is diagnostic for diabetes. In the absence of unequivocal hyperglycemia, results should be confirmed by repeat testing. The classification and Diagnosis of Diabetes Diabetes Care 202; 46: S19-S40. Current interpretive data was last revised 2022. Calcium 8.9 8.5 - 10.3 mg/dL [facility] Blood 12/05/2024 10:0 5 AM CDT 12/05/2024 10:18 AM CDT Jackelyn LYNN LAB BLOOD ORDERABLES Final Re sult [facility] [place] [address] * Heparin anti factor Xa activity (12/05/2024 5:37 AM CDT) [facility] Anti Factor Xa 0.46 IUnits/mL Comment: Interpretive Data Enoxaparin therapeutic range (peak): VTE treatment, Q12hr dosin.60-1.00 IUnits/mL VTE treatment, Q24hr dosin.00-2.00 IUnits/mL Q24hr dosing for renal impairment (CrCl <30 mL/min): 0.60-1.00 IUnits/mL VTE prevention: 0.10-0.40 IUnits/mL - Anti-Xa therapeutic ranges apply to blood samples drawn 4 hours after last dose (peak). - Unfractionated heparin (UFH) therapeutic range: 0.30-0.70 IUnits/mL - Direct factor Xa inhibitors (rivaroxaban, apixaban): Results must be interpreted qualitatively. No activity detected suggests little anticoagulant activity. - In severe antithrombin deficiency, anti-Xa measurement may be inaccurate. - Interpretive guidelines developed in adult populations. Interpretive guidelines for pediatric patients have not been rigorously defined. - Current interpretive data was last revised on 2019. Blood 12/05/2024 5:37 AM CDT 12/05/2024 5:47 AM CDT Khanh Salazar MD LAB BLOOD ORDERABLES Final Res ult Performing Organization Address [facility] de Phone Number [facility] [place] [address] * (ABNORMAL) aPTT (12/05/2024 5:37 AM CDT) aPTT 70(H) 28 - 38 sec Comment: Interpretive Data Heparin therapeutic range: 66.0 - 100.0 seconds. Range based on correlation with therapeutic heparin activity range of 0.3 - 0.7 Units/mL. Current interpretive data was last revised on 2023. Blood 12/05/2024 5:37 AM CDT 12/05/2024 5:47 AM CDT Khanh Salazar MD LAB BLOOD ORDERABLES Final Res ult Performing Organization Address [facility] de Phone Number [facility] [place] [address] * Protime-INR (12/05/2024 5:37 AM CDT) PT 10.9 9.7 - 13.0 sec INR 1.01 0.90 - 1.20 [facility] Comment: Interpretive data Oral anticoagulant therapeutic ranges: Venous thromboembolism prophylaxis or treatment: 2.0-3.0 CARDIOLOGY Standard range: 2.0-3.0 High-intensity range: 2.5-3.5 Refer to indication-specific guidelines for appropriate target ranges for prosthetic heart valve replacement. Current interpretive data was last revised on 2019. Blood 12/05/2024 5:37 AM CDT 12/05/2024 5:47 AM CDT Khanh Salazar MD LAB BLOOD ORDERABLES Final Res ult [facility] [place] [address] * Heparin anti factor Xa activity (12/04/2024 10:09 PM CDT) [facility] Anti Factor Xa 0.25 IUnits/mL Comment: Interpretive Data Enoxaparin therapeutic range (peak): VTE treatment, Q12hr dosin.60-1.00 IUnits/mL VTE treatment, Q24hr dosin.00-2.00 IUnits/mL Q24hr dosing for renal impairment (CrCl <30 mL/min): 0.60-1.00 IUnits/mL VTE prevention: 0.10-0.40 IUnits/mL - Anti-Xa therapeutic ranges apply to blood samples drawn 4 hours after last dose (peak). - Unfractionated heparin (UFH) therapeutic range: 0.30-0.70 IUnits/mL - Direct factor Xa inhibitors (rivaroxaban, apixaban): Results must be interpreted qualitatively. No activity detected suggests little anticoagulant activity. - In severe antithrombin deficiency, anti-Xa measurement may be inaccurate. - Interpretive guidelines developed in adult populations. Interpretive guidelines for pediatric patients have not been rigorously defined. - Current interpretive data was last revised on 2019. Blood 12/04/2024 10:0 9 PM CDT 12/04/2024 10:42 PM CDT Khanh Salazar MD LAB BLOOD ORDERABLES Final Res ult [facility] Department [place] [address] * Heparin anti factor Xa activity (12/04/2024 3:23 PM CDT) Anti Factor Xa <0.10 IUnits/mL Comment: Interpretive Data Enoxaparin therapeutic range (peak): VTE treatment, Q12hr dosin.60-1.00 IUnits/mL VTE treatment, Q24hr dosin.00-2.00 IUnits/mL Q24hr dosing for renal impairment (CrCl <30 mL/min): 0.60-1.00 IUnits/mL VTE prevention: 0.10-0.40 IUnits/mL - Anti-Xa therapeutic ranges apply to blood samples drawn 4 hours after last dose (peak). - Unfractionated heparin (UFH) therapeutic range: 0.30-0.70 IUnits/mL - Direct factor Xa inhibitors (rivaroxaban, apixaban): Results must be interpreted qualitatively. No activity detected suggests little anticoagulant activity. - In severe antithrombin deficiency, anti-Xa measurement may be inaccurate. - Interpretive guidelines developed in adult populations. Interpretive guidelines for pediatric patients have not been rigorously defined. - Current interpretive data was last revised on 2019. Blood 12/04/2024 3:23 PM CDT 12/04/2024 3:37 PM CDT Khanh Salazar MD LAB BLOOD ORDERABLES Final Res ult [facility] One [facility] Department [place] [address] * Heparin anti factor Xa activity (12/04/2024 6:50 AM CDT) Anti Factor Xa 0.12 IUnits/mL Comment: Interpretive Data Enoxaparin therapeutic range (peak): VTE treatment, Q12hr dosin.60-1.00 IUnits/mL VTE treatment, Q24hr dosin.00-2.00 IUnits/mL Q24hr dosing for renal impairment (CrCl <30 mL/min): 0.60-1.00 IUnits/mL VTE prevention: 0.10-0.40 IUnits/mL - Anti-Xa therapeutic ranges apply to blood samples drawn 4 hours after last dose (peak). - Unfractionated heparin (UFH) therapeutic range: 0.30-0.70 IUnits/mL - Direct factor Xa inhibitors (rivaroxaban, apixaban): Results must be interpreted qualitatively. No activity detected suggests little anticoagulant activity. - In severe antithrombin deficiency, anti-Xa measurement may be inaccurate. - Interpretive guidelines developed in adult populations. Interpretive guidelines for pediatric patients have not been rigorously defined. - Current interpretive data was last revised on 2019. Blood 12/04/2024 6:50 AM CDT 12/04/2024 7:11 AM CDT Khanh Salazar MD LAB BLOOD ORDERABLES Final Res ult [facility] One [facility] Department [place] [address] * Heparin anti factor Xa activity (12/04/2024 12:53 AM CDT) Anti Factor Xa 0.25 IUnits/mL Comment: Interpretive Data Enoxaparin therapeutic range (peak): VTE treatment, Q12hr dosin.60-1.00 IUnits/mL VTE treatment, Q24hr dosin.00-2.00 IUnits/mL Q24hr dosing for renal impairment (CrCl <30 mL/min): 0.60-1.00 IUnits/mL VTE prevention: 0.10-0.40 IUnits/mL - Anti-Xa therapeutic ranges apply to blood samples drawn 4 hours after last dose (peak). - Unfractionated heparin (UFH) therapeutic range: 0.30-0.70 IUnits/mL - Direct factor Xa inhibitors (rivaroxaban, apixaban): Results must be interpreted qualitatively. No activity detected suggests little anticoagulant activity. - In severe antithrombin deficiency, anti-Xa measurement may be inaccurate. - Interpretive guidelines developed in adult populations. Interpretive guidelines for pediatric patients have not been rigorously defined. - Current interpretive data was last revised on 2019. Blood 12/04/2024 12:5 3 AM CDT 12/04/2024 1:15 AM CDT Narrative [facility] - 12/04/2024 1:40 AM CDT STAT Anti Xa timing: - Draw 6 hours after heparin infusion initiation - Draw 6 hours after every dose change until 2 consecutive Anti Xas are therapeutic - Once 2 consecutive Anti Xas are therapeutic, obtain with daily labs until infusion is discontinued - - Restart every 6 hour lab draws and follow instructions accordingly if Anti Xa is outside of therapeutic range Do not draw lab from IV line that is actively infusing heparin. Use the opposite arm. If arm with actively infusing heparin must be used, pause the infusion for at least 2 minutes, and draw specimen below the IV site. For patients with a central venous catheter (CVC), lab must be drawn peripherally (not from CVC). Khanh Salazar MD LAB BLOOD ORDERABLES Final Res ult [facility] One [facility] Department [place] [address] * Heparin anti factor Xa activity (12/03/2024 5:56 PM CDT) [facility] Anti Factor Xa 0.10 IUnits/mL Comment: Interpretive Data Enoxaparin therapeutic range (peak): VTE treatment, Q12hr dosin.60-1.00 IUnits/mL VTE treatment, Q24hr dosin.00-2.00 IUnits/mL Q24hr dosing for renal impairment (CrCl <30 mL/min): 0.60-1.00 IUnits/mL VTE prevention: 0.10-0.40 IUnits/mL - Anti-Xa therapeutic ranges apply to blood samples drawn 4 hours after last dose (peak). - Unfractionated heparin (UFH) therapeutic range: 0.30-0.70 IUnits/mL - Direct factor Xa inhibitors (rivaroxaban, apixaban): Results must be interpreted qualitatively. No activity detected suggests little anticoagulant activity. - In severe antithrombin deficiency, anti-Xa measurement may be inaccurate. - Interpretive guidelines developed in adult populations. Interpretive guidelines for pediatric patients have not been rigorously defined. - Current interpretive data was last revised on 2019. Blood 12/03/2024 5:56 PM CDT 12/03/2024 6:13 PM CDT Gurwinder MELCHOR - 12/03/2024 6:19 PM CDT STAT Anti Xa timing: - Draw 6 hours after heparin infusion initiation - Draw 6 hours after every dose change until 2 consecutive Anti Xas are therapeutic - Once 2 consecutive Anti Xas are therapeutic, obtain with daily labs until infusion is discontinued - - Restart every 6 hour lab draws and follow instructions accordingly if Anti Xa is outside of therapeutic range Do not draw lab from IV line that is actively infusing heparin. Use the opposite arm. If arm with actively infusing heparin must be used, pause the infusion for at least 2 minutes, and draw specimen below the IV site. For patients with a central venous catheter (CVC), lab must be drawn peripherally (not from CVC). us Khanh Salazar MD LAB BLOOD ORDERABLES Final Res ult [facility] One [facility] Department [place] [address] * Heparin anti factor Xa activity (12/03/2024 10:00 AM CDT) Anti Factor Xa <0.10 IUnits/mL Comment: Interpretive Data Enoxaparin therapeutic range (peak): VTE treatment, Q12hr dosin.60-1.00 IUnits/mL VTE treatment, Q24hr dosin.00-2.00 IUnits/mL Q24hr dosing for renal impairment (CrCl <30 mL/min): 0.60-1.00 IUnits/mL VTE prevention: 0.10-0.40 IUnits/mL - Anti-Xa therapeutic ranges apply to blood samples drawn 4 hours after last dose (peak). - Unfractionated heparin (UFH) therapeutic range: 0.30-0.70 IUnits/mL - Direct factor Xa inhibitors (rivaroxaban, apixaban): Results must be interpreted qualitatively. No activity detected suggests little anticoagulant activity. - In severe antithrombin deficiency, anti-Xa measurement may be inaccurate. - Interpretive guidelines developed in adult populations. Interpretive guidelines for pediatric patients have not been rigorously defined. - Current interpretive data was last revised on 2019. Blood 12/03/2024 10:0 0 AM CDT 12/03/2024 10:10 AM CDT Gurwinder [facility] - 12/03/2024 10:37 AM CDT STAT Anti Xa timing: - Draw 6 hours after heparin infusion initiation - Draw 6 hours after every dose change until 2 consecutive Anti Xas are therapeutic - Once 2 consecutive Anti Xas are therapeutic, obtain with daily labs until infusion is discontinued - - Restart every 6 hour lab draws and follow instructions accordingly if Anti Xa is outside of therapeutic range Do not draw lab from IV line that is actively infusing heparin. Use the opposite arm. If arm with actively infusing heparin must be used, pause the infusion for at least 2 minutes, and draw specimen below the IV site. For patients with a central venous catheter (CVC), lab must be drawn peripherally (not from CVC). us Khanh Salazar MD LAB BLOOD ORDERABLES Final Res ult [facility] Department [place] [address] * Heparin anti factor Xa activity (12/03/2024 3:09 AM CDT) [facility] Anti Factor Xa <0.10 IUnits/mL Comment: Interpretive Data Enoxaparin therapeutic range (peak): VTE treatment, Q12hr dosin.60-1.00 IUnits/mL VTE treatment, Q24hr dosin.00-2.00 IUnits/mL Q24hr dosing for renal impairment (CrCl <30 mL/min): 0.60-1.00 IUnits/mL VTE prevention: 0.10-0.40 IUnits/mL - Anti-Xa therapeutic ranges apply to blood samples drawn 4 hours after last dose (peak). - Unfractionated heparin (UFH) therapeutic range: 0.30-0.70 IUnits/mL - Direct factor Xa inhibitors (rivaroxaban, apixaban): Results must be interpreted qualitatively. No activity detected suggests little anticoagulant activity. - In severe antithrombin deficiency, anti-Xa measurement may be inaccurate. - Interpretive guidelines developed in adult populations. Interpretive guidelines for pediatric patients have not been rigorously defined. - Current interpretive data was last revised on 2019. Blood 12/03/2024 3:09 AM CDT 12/03/2024 3:22 AM CDT Gurwinder [facility] - 12/03/2024 3:52 AM CDT STAT Anti Xa timing: - Draw 6 hours after heparin infusion initiation - Draw 6 hours after every dose change until 2 consecutive Anti Xas are therapeutic - Once 2 consecutive Anti Xas are therapeutic, obtain with daily labs until infusion is discontinued - - Restart every 6 hour lab draws and follow instructions accordingly if Anti Xa is outside of therapeutic range Do not draw lab from IV line that is actively infusing heparin. Use the opposite arm. If arm with actively infusing heparin must be used, pause the infusion for at least 2 minutes, and draw specimen below the IV site. For patients with a central venous catheter (CVC), lab must be drawn peripherally (not from CVC). Khanh Salazar MD LAB BLOOD ORDERABLES Final Res ult [facility] One [facility] Department [place] [address] * Heparin anti factor Xa activity (12/02/2024 7:49 PM CDT) [facility] Signature Anti Factor Xa 0.45 IUnits/mL Comment: Interpretive Data Enoxaparin therapeutic range (peak): VTE treatment, Q12hr dosin.60-1.00 IUnits/mL VTE treatment, Q24hr dosin.00-2.00 IUnits/mL Q24hr dosing for renal impairment (CrCl <30 mL/min): 0.60-1.00 IUnits/mL VTE prevention: 0.10-0.40 IUnits/mL - Anti-Xa therapeutic ranges apply to blood samples drawn 4 hours after last dose (peak). - Unfractionated heparin (UFH) therapeutic range: 0.30-0.70 IUnits/mL - Direct factor Xa inhibitors (rivaroxaban, apixaban): Results must be interpreted qualitatively. No activity detected suggests little anticoagulant activity. - In severe antithrombin deficiency, anti-Xa measurement may be inaccurate. - Interpretive guidelines developed in adult populations. Interpretive guidelines for pediatric patients have not been rigorously defined. - Current interpretive data was last revised on 2019. Blood 12/02/2024 7:49 PM CDT 12/02/2024 8:46 PM CDT Narrative [facility] - 12/02/2024 8:53 PM CDT STAT Anti Xa timing: - Draw 6 hours after heparin infusion initiation - Draw 6 hours after every dose change until 2 consecutive Anti Xas are therapeutic - Once 2 consecutive Anti Xas are therapeutic, obtain with daily labs until infusion is discontinued - - Restart every 6 hour lab draws and follow instructions accordingly if Anti Xa is outside of therapeutic range Do not draw lab from IV line that is actively infusing heparin. Use the opposite arm. If arm with actively infusing heparin must be used, pause the infusion for at least 2 minutes, and draw specimen below the IV site. For patients with a central venous catheter (CVC), lab must be drawn peripherally (not from CVC). Khanh Salazar MD LAB BLOOD ORDERABLES Final Res ult [facility] One [facility] Department [place] [address] * (ABNORMAL) CBC without differential (12/02/2024 7:49 PM CDT) [facility] WBC 12.09(H) 3.80 - 9.90 K/cumm Hgb 9.2(L) 13.0 - 17.5 g/dL [facility] Hct 27.7(L) 38.9 - 50.3 % [facility] Plt 313 150 - 400 K/cumm [facility] MPV 8.9(L) 9.1 - 12.3 fL [facility] RBC 2.96(L) 4.30 - 5.80 M/cumm [facility] MCV 93.6 81.3 - 96.4 fL [facility] MCH 31.1 27.1 - 33.3 pg [facility] MCHC 33.2 32.3 - 35.7 g/dL [facility] RDW CV 14.1 11.1 - 14.9 % [facility] RDW SD 47.7 35.7 - 48.1 fL [facility] NRBC abs 0.00 0.00 - 0.01 K/cumm [facility] Blood 12/02/2024 7:49 PM CDT 12/02/2024 8:12 PM CDT Narrative [facility] - 12/02/2024 8:18 PM CDT While on heparin infusion us Khanh Salazar MD LAB BLOOD ORDERABLES Final Res ult [facility] One [facility] Department [place] [address] * eGFR (12/01/2024 9:50 PM CDT) eGFR >90 >=60 mL/min/1. 73 m2 Comment: Interpretive Data Reference Interval Normal >/= 90 mL/min/1.73m2 Mildly decreased* 60 - 89 mL/min/1.73m2 Mildly to moderately decreased 45 - 59 mL/min/1.73m2 Moderately to severely decreased 30 - 44 mL/min/1.73m2 Severely decreased 15 - 29 mL/min/1.73m2 Kidney Failure < 15 mL/min/1.73m2 *Relative to young adult level Estimated glomerular filtration rate is determined by the 2020 CKD-EPI equation recommended by the [employer] (A Unifying Approach to GFR Estimation: Recommendations of the NKF-ASK Task Force on Reassessing the Inclusion of Race in Diagnosing Kidney Disease, JASN 2020). The CKD-EPI equation should not be used for patients with unstable renal function and has not been validated in children and those over 70. Current interpretive data was last reviewed 2021. Blood 12/01/2024 9:50 PM CDT 12/01/2024 10:12 PM CDT us Khanh Salazar MD LAB BLOOD ORDERABLES [facility] Department [place] [address] * Heparin anti factor Xa activity (12/01/2024 9:50 PM CDT) Anti Factor Xa 0.26 IUnits/mL Comment: Interpretive Data Enoxaparin therapeutic range (peak): VTE treatment, Q12hr dosin.60-1.00 IUnits/mL VTE treatment, Q24hr dosin.00-2.00 IUnits/mL Q24hr dosing for renal impairment (CrCl <30 mL/min): 0.60-1.00 IUnits/mL VTE prevention: 0.10-0.40 IUnits/mL - Anti-Xa therapeutic ranges apply to blood samples drawn 4 hours after last dose (peak). - Unfractionated heparin (UFH) therapeutic range: 0.30-0.70 IUnits/mL - Direct factor Xa inhibitors (rivaroxaban, apixaban): Results must be interpreted qualitatively. No activity detected suggests little anticoagulant activity. - In severe antithrombin deficiency, anti-Xa measurement may be inaccurate. - Interpretive guidelines developed in adult populations. Interpretive guidelines for pediatric patients have not been rigorously defined. - Current interpretive data was last revised on 2019. Blood 12/01/2024 9:50 PM CDT 12/01/2024 10:04 PM CDT Narrative [facility] - 12/01/2024 10:12 PM CDT STAT Anti Xa timing: - Draw 6 hours after heparin infusion initiation - Draw 6 hours after every dose change until 2 consecutive Anti Xas are therapeutic - Once 2 consecutive Anti Xas are therapeutic, obtain with daily labs until infusion is discontinued - - Restart every 6 hour lab draws and follow instructions accordingly if Anti Xa is outside of therapeutic range Do not draw lab from IV line that is actively infusing heparin. Use the opposite arm. If arm with actively infusing heparin must be used, pause the infusion for at least 2 minutes, and draw specimen below the IV site. For patients with a central venous catheter (CVC), lab must be drawn peripherally (not from CVC). Khanh Salazar MD LAB BLOOD ORDERABLES Final Res ult Performing Organization Address [facility]/ZIP Co de Phone Number [facility] Department [place] [address] * (ABNORMAL) CBC without differential (12/01/2024 9:50 PM CDT) [facility] WBC 12.23(H) 3.80 - 9.90 K/cumm Hgb 9.4(L) 13.0 - 17.5 g/dL [facility] Hct 27.8(L) 38.9 - 50.3 % [facility] Plt 346 150 - 400 K/cumm [facility] MPV 9.2 9.1 - 12.3 fL [facility] RBC 3.02(L) 4.30 - 5.80 M/cumm [facility] MCV 92.1 81.3 - 96.4 fL [facility] MCH 31.1 27.1 - 33.3 pg [facility] MCHC 33.8 32.3 - 35.7 g/dL [facility] RDW CV 14.5 11.1 - 14.9 % [facility] RDW SD 48.5(H) 35.7 - 48.1 fL [facility] NRBC abs 0.00 0.00 - 0.01 K/cumm [facility] Blood 12/01/2024 9:50 PM CDT 12/01/2024 10:13 PM CDT Khanh Salazar MD LAB BLOOD ORDERABLES Final Res ult Performing Organization Address [facility]/ZIP Co de Phone Number [facility] [address] * Phosphorus (12/01/2024 9:50 PM CDT) [facility] Phosphorus, pl 3.7 2.3 - 4.5 mg/dL Blood 12/01/2024 9:50 PM CDT 12/01/2024 10:12 PM CDT Khanh Salazar MD LAB BLOOD [place]AB[place] [address] * Magnesium (12/01/2024 9:50 PM CDT) [facility] Magnesium 2.1 1.4 - 2.5 mg/dL Blood 12/01/2024 9:50 PM CDT 12/01/2024 10:12 PM CDT Khanh Salazar MD LAB BLOOD ORDERABLES Final Res ult Performing Organization Address City/[facility] [place] [address] * (ABNORMAL) Basic metabolic panel (12/01/2024 9:50 PM CDT) [facility] Sodium 141 135 - 145 mmol/L Potassium, pl 4.3 3.3 - 4.9 mmol/L [facility] Chloride 107 97 - 110 mmol/L [facility] CO2 27 22 - 32 mmol/L [facility] Anion gap 7 2 - 15 mmol/L [facility] BUN 21 6 - 25 mg/dL [facility] Creatinine 0.69(L) 0.80 - 1.30 mg/dL [facility] Glucose 115 70 - 199 mg/dL [facility] Comment: Interpretive Data Fasting glucose >/= 126 mg/dl is diagnostic for diabetes. Fasting is defined as no caloric intake for at least 8 hours. Fasting glucose between 100 mg/dl to 125 mg/dl is diagnostic of prediabetes. In a patient with classic symptoms of hyperglycemia or hyperglycemic crisis, a random glucose >/= 200 mg/dl is diagnostic for diabetes. In the absence of unequivocal hyperglycemia, results should be confirmed by repeat testing. The classification and Diagnosis of Diabetes Diabetes Care 2021; 46: S19-S40. Current interpretive data was last revised 2022. Calcium 8.8 8.5 - 10.3 mg/dL [facility] Blood 12/01/2024 9:50 PM CDT 12/01/2024 10:12 PM CDT us Khanh Salazar MD LAB BLOOD ORDERABLES Final Res ult [facility] Department [place] [address] * Heparin anti factor Xa activity (12/01/2024 3:46 PM CDT) [facility] Anti Factor Xa 0.15 IUnits/mL Comment: Interpretive Data Enoxaparin therapeutic range (peak): VTE treatment, Q12hr dosin.60-1.00 IUnits/mL VTE treatment, Q24hr dosin.00-2.00 IUnits/mL Q24hr dosing for renal impairment (CrCl <30 mL/min): 0.60-1.00 IUnits/mL VTE prevention: 0.10-0.40 IUnits/mL - Anti-Xa therapeutic ranges apply to blood samples drawn 4 hours after last dose (peak). - Unfractionated heparin (UFH) therapeutic range: 0.30-0.70 IUnits/mL - Direct factor Xa inhibitors (rivaroxaban, apixaban): Results must be interpreted qualitatively. No activity detected suggests little anticoagulant activity. - In severe antithrombin deficiency, anti-Xa measurement may be inaccurate. - Interpretive guidelines developed in adult populations. Interpretive guidelines for pediatric patients have not been rigorously defined. - Current interpretive data was last revised on 2019. Blood 12/01/2024 3:46 PM CDT 12/01/2024 4:44 PM CDT Narrative [facility] - 12/01/2024 4:50 PM CDT STAT Anti Xa timing: - Draw 6 hours after heparin infusion initiation - Draw 6 hours after every dose change until 2 consecutive Anti Xas are therapeutic - Once 2 consecutive Anti Xas are therapeutic, obtain with daily labs until infusion is discontinued - - Restart every 6 hour lab draws and follow instructions accordingly if Anti Xa is outside of therapeutic range Do not draw lab from IV line that is actively infusing heparin. Use the opposite arm. If arm with actively infusing heparin must be used, pause the infusion for at least 2 minutes, and draw specimen below the IV site. For patients with a central venous catheter (CVC), lab must be drawn peripherally (not from CVC). Khanh Salazar MD LAB BLOOD ORDERABLES Final Res ult [facility] One [facility] Department [place] [address] * Heparin anti factor Xa activity (12/01/2024 8:57 AM CDT) [facility] Signature Anti Factor Xa 0.10 IUnits/mL Comment: Interpretive Data Enoxaparin therapeutic range (peak): VTE treatment, Q12hr dosin.60-1.00 IUnits/mL VTE treatment, Q24hr dosin.00-2.00 IUnits/mL Q24hr dosing for renal impairment (CrCl <30 mL/min): 0.60-1.00 IUnits/mL VTE prevention: 0.10-0.40 IUnits/mL - Anti-Xa therapeutic ranges apply to blood samples drawn 4 hours after last dose (peak). - Unfractionated heparin (UFH) therapeutic range: 0.30-0.70 IUnits/mL - Direct factor Xa inhibitors (rivaroxaban, apixaban): Results must be interpreted qualitatively. No activity detected suggests little anticoagulant activity. - In severe antithrombin deficiency, anti-Xa measurement may be inaccurate. - Interpretive guidelines developed in adult populations. Interpretive guidelines for pediatric patients have not been rigorously defined. - Current interpretive data was last revised on 2019. Blood 12/01/2024 8:57 AM CDT 12/01/2024 9:09 AM CDT Narrative [facility] - 12/01/2024 9:37 AM CDT STAT Anti Xa timing: - Draw 6 hours after heparin infusion initiation - Draw 6 hours after every dose change until 2 consecutive Anti Xas are therapeutic - Once 2 consecutive Anti Xas are therapeutic, obtain with daily labs until infusion is discontinued - - Restart every 6 hour lab draws and follow instructions accordingly if Anti Xa is outside of therapeutic range Do not draw lab from IV line that is actively infusing heparin. Use the opposite arm. If arm with actively infusing heparin must be used, pause the infusion for at least 2 minutes, and draw specimen below the IV site. For patients with a central venous catheter (CVC), lab must be drawn peripherally (not from CVC). us Khanh Salazar MD LAB BLOOD ORDERABLES Final Res ult [facility] [place] [address] * Heparin anti factor Xa activity (12/01/2024 2:25 AM CDT) [facility] Signature Anti Factor Xa 0.21 IUnits/mL Comment: Interpretive Data Enoxaparin therapeutic range (peak): VTE treatment, Q12hr dosin.60-1.00 IUnits/mL VTE treatment, Q24hr dosin.00-2.00 IUnits/mL Q24hr dosing for renal impairment (CrCl <30 mL/min): 0.60-1.00 IUnits/mL VTE prevention: 0.10-0.40 IUnits/mL - Anti-Xa therapeutic ranges apply to blood samples drawn 4 hours after last dose (peak). - Unfractionated heparin (UFH) therapeutic range: 0.30-0.70 IUnits/mL - Direct factor Xa inhibitors (rivaroxaban, apixaban): Results must be interpreted qualitatively. No activity detected suggests little anticoagulant activity. - In severe antithrombin deficiency, anti-Xa measurement may be inaccurate. - Interpretive guidelines developed in adult populations. Interpretive guidelines for pediatric patients have not been rigorously defined. - Current interpretive data was last revised on 2019. Blood 12/01/2024 2:25 AM CDT 12/01/2024 2:52 AM CDT Narrative [facility] - 12/01/2024 2:59 AM CDT STAT Anti Xa timing: - Draw 6 hours after heparin infusion initiation - Draw 6 hours after every dose change until 2 consecutive Anti Xas are therapeutic - Once 2 consecutive Anti Xas are therapeutic, obtain with daily labs until infusion is discontinued - - Restart every 6 hour lab draws and follow instructions accordingly if Anti Xa is outside of therapeutic range Do not draw lab from IV line that is actively infusing heparin. Use the opposite arm. If arm with actively infusing heparin must be used, pause the infusion for at least 2 minutes, and draw specimen below the IV site. For patients with a central venous catheter (CVC), lab must be drawn peripherally (not from CVC). us Khanh Salazar MD LAB BLOOD ORDERABLES Final Res ult [facility] Department [place] [address] * Infection Prevention Coleen auris PCR, surveillance Axilla/Groin (12/01/2024 2:23 AM CDT) Coleen auris DNA Not Detected Not Detected [facility] Comment: Interpretive Data Testing performed by [facility] Molecular Infectious Disease Laboratory using the Rasheed darryn 6800 Coleen auris assay. This assay detects DNA from Coleen auris using Real-Time PCR. This assay is laboratory developed and is not cleared by the [place] Food and Drug Administration. The performance characteristics have been verified by the [facility] Infectious Disease Laboratory. Axilla/Groin 12/01/2024 2:23 AM CDT 12/01/2024 2:35 AM CDT Narrative [facility] - 12/01/2024 1:38 PM CDT Order placed by [facility] due to ring surveillance. us Instant Order Generic Provider LAB MICROBIOLOGY - GENERAL ORDERABLES Final Result Performing Organization Address City/[facility] Co de Phone Number [facility] [place] [address] BJ * eGFR (11/30/2024 7:17 PM CDT) eGFR >90 >=60 mL/min/1. 73 m2 Comment: Interpretive Data Reference Interval Normal >/= 90 mL/min/1.73m2 Mildly decreased* 60 - 89 mL/min/1.73m2 Mildly to moderately decreased 45 - 59 mL/min/1.73m2 Moderately to severely decreased 30 - 44 mL/min/1.73m2 Severely decreased 15 - 29 mL/min/1.73m2 Kidney Failure < 15 mL/min/1.73m2 *Relative to young adult level Estimated glomerular filtration rate is determined by the 2020 CKD-EPI equation recommended by the National Kidney [employer] (A Unifying Approach to GFR Estimation: Recommendations of the NKF-ASK Task Force on Reassessing the Inclusion of Race in Diagnosing Kidney Disease, JASN 2020). The CKD-EPI equation should not be used for patients with unstable renal function and has not been validated in children and those over 70. Current interpretive data was last reviewed 2021. Blood 11/30/2024 7:17 PM CDT 11/30/2024 7:30 PM CDT Khanh Salazar MD LAB BLOOD ORDERABLES Final Res ult [facility] Department [place] [address] * Heparin anti factor Xa activity (11/30/2024 7:17 PM CDT) Anti Factor Xa 0.12 IUnits/mL Comment: Interpretive Data Enoxaparin therapeutic range (peak): VTE treatment, Q12hr dosin.60-1.00 IUnits/mL VTE treatment, Q24hr dosin.00-2.00 IUnits/mL Q24hr dosing for renal impairment (CrCl <30 mL/min): 0.60-1.00 IUnits/mL VTE prevention: 0.10-0.40 IUnits/mL - Anti-Xa therapeutic ranges apply to blood samples drawn 4 hours after last dose (peak). - Unfractionated heparin (UFH) therapeutic range: 0.30-0.70 IUnits/mL - Direct factor Xa inhibitors (rivaroxaban, apixaban): Results must be interpreted qualitatively. No activity detected suggests little anticoagulant activity. - In severe antithrombin deficiency, anti-Xa measurement may be inaccurate. - Interpretive guidelines developed in adult populations. Interpretive guidelines for pediatric patients have not been rigorously defined. - Current interpretive data was last revised on 2019. Blood 11/30/2024 7:17 PM CDT 11/30/2024 7:34 PM CDT Gurwinder [facility] - 11/30/2024 7:41 PM CDT STAT Anti Xa timing: - Draw 6 hours after heparin infusion initiation - Draw 6 hours after every dose change until 2 consecutive Anti Xas are therapeutic - Once 2 consecutive Anti Xas are therapeutic, obtain with daily labs until infusion is discontinued - - Restart every 6 hour lab draws and follow instructions accordingly if Anti Xa is outside of therapeutic range Do not draw lab from IV line that is actively infusing heparin. Use the opposite arm. If arm with actively infusing heparin must be used, pause the infusion for at least 2 minutes, and draw specimen below the IV site. For patients with a central venous catheter (CVC), lab must be drawn peripherally (not from CVC). us Khanh Salazar MD LAB BLOOD ORDERABLES Final Res ult [facility] Department [place] [address] * (ABNORMAL) CBC without differential (11/30/2024 7:17 PM CDT) WBC 17.24(H) 3.80 - 9.90 K/cumm Hgb 9.5(L) 13.0 - 17.5 g/dL [facility] Hct 28.3(L) 38.9 - 50.3 % [facility] Plt 358 150 - 400 K/cumm [facility] MPV 9.1 9.1 - 12.3 fL [facility] RBC 3.09(L) 4.30 - 5.80 M/cumm [facility] MCV 91.6 81.3 - 96.4 fL [facility] MCH 30.7 27.1 - 33.3 pg [facility] MCHC 33.6 32.3 - 35.7 g/dL [facility] RDW CV 14.6 11.1 - 14.9 % [facility] RDW SD 48.7(H) 35.7 - 48.1 fL [facility] NRBC abs 0.00 0.00 - 0.01 K/cumm [facility] Blood 11/30/2024 7:17 PM CDT 11/30/2024 7:30 PM CDT Khanh Salazar MD LAB BLOOD ORDERABLES Final Res ult Performing Organization Address City/[facility]/ZIP Co de Phone Number [facility] [place] [address] * Phosphorus (11/30/2024 7:17 PM CDT) Phosphorus, pl 2.5 2.3 - 4.5 mg/dL Blood 11/30/2024 7:17 PM CDT 11/30/2024 7:30 PM CDT Khanh Salazar MD LAB BLOOD ORDERABLES Final Res ult [facility] [place] [address] * Magnesium (11/30/2024 7:17 PM CDT) Magnesium 2.1 1.4 - 2.5 mg/dL Blood 11/30/2024 7:17 PM CDT 11/30/2024 7:30 PM CDT Khanh Salazar MD LAB BLOOD ORDERABLES Final Res ult Performing Organization Address City/[facility]/ZIP Co de Phone Number [facility] Department [place] [address] * (ABNORMAL) Basic metabolic panel (11/30/2024 7:17 PM CDT) Pathologist [facility] Sodium 140 135 - 145 mmol/L Potassium, pl 3.8 3.3 - 4.9 mmol/L [facility] Chloride 108 97 - 110 mmol/L [facility] CO2 24 22 - 32 mmol/L [facility] Anion gap 8 2 - 15 mmol/L [facility] BUN 23 6 - 25 mg/dL [facility] Creatinine 0.75(L) 0.80 - 1.30 mg/dL [facility] Glucose 141 70 - 199 mg/dL [facility] Comment: Interpretive Data Fasting glucose >/= 126 mg/dl is diagnostic for diabetes. Fasting is defined as no caloric intake for at least 8 hours. Fasting glucose between 100 mg/dl to 125 mg/dl is diagnostic of prediabetes. In a patient with classic symptoms of hyperglycemia or hyperglycemic crisis, a random glucose >/= 200 mg/dl is diagnostic for diabetes. In the absence of unequivocal hyperglycemia, results should be confirmed by repeat testing. The classification and Diagnosis of Diabetes Diabetes Care 2021; 46: S19-S40. Current interpretive data was last revised 2022. Calcium 8.2(L) 8.5 - 10.3 mg/dL [facility] Blood 11/30/2024 7:17 PM CDT 11/30/2024 7:30 PM CDT Khanh Salazar MD LAB BLOOD ORDERABLES Final Res ult Performing Organization Address [facility]/ZIP Co de Phone Number [facility] [place] [address] * Heparin anti factor Xa activity (11/30/2024 12:09 PM CDT) [facility] Signature Anti Factor Xa <0.10 IUnits/mL Comment: Interpretive Data Enoxaparin therapeutic range (peak): VTE treatment, Q12hr dosin.60-1.00 IUnits/mL VTE treatment, Q24hr dosin.00-2.00 IUnits/mL Q24hr dosing for renal impairment (CrCl <30 mL/min): 0.60-1.00 IUnits/mL VTE prevention: 0.10-0.40 IUnits/mL - Anti-Xa therapeutic ranges apply to blood samples drawn 4 hours after last dose (peak). - Unfractionated heparin (UFH) therapeutic range: 0.30-0.70 IUnits/mL - Direct factor Xa inhibitors (rivaroxaban, apixaban): Results must be interpreted qualitatively. No activity detected suggests little anticoagulant activity. - In severe antithrombin deficiency, anti-Xa measurement may be inaccurate. - Interpretive guidelines developed in adult populations. Interpretive guidelines for pediatric patients have not been rigorously defined. - Current interpretive data was last revised on 2019. Blood 11/30/2024 12:0 9 PM CDT 11/30/2024 12:28 PM CDT Gurwinder [facility] - 11/30/2024 12:51 PM CDT STAT Anti Xa timing: - Draw 6 hours after heparin infusion initiation - Draw 6 hours after every dose change until 2 consecutive Anti Xas are therapeutic - Once 2 consecutive Anti Xas are therapeutic, obtain with daily labs until infusion is discontinued - - Restart every 6 hour lab draws and follow instructions accordingly if Anti Xa is outside of therapeutic range Do not draw lab from IV line that is actively infusing heparin. Use the opposite arm. If arm with actively infusing heparin must be used, pause the infusion for at least 2 minutes, and draw specimen below the IV site. For patients with a central venous catheter (CVC), lab must be drawn peripherally (not from CVC). Khanh Salazar MD LAB BLOOD ORDERABLES Final Res ult [facility] Department [place] [address] * Heparin anti factor Xa activity (11/30/2024 5:13 AM CDT) Anti Factor Xa 0.11 IUnits/mL Comment: Interpretive Data Enoxaparin therapeutic range (peak): VTE treatment, Q12hr dosin.60-1.00 IUnits/mL VTE treatment, Q24hr dosin.00-2.00 IUnits/mL Q24hr dosing for renal impairment (CrCl <30 mL/min): 0.60-1.00 IUnits/mL VTE prevention: 0.10-0.40 IUnits/mL - Anti-Xa therapeutic ranges apply to blood samples drawn 4 hours after last dose (peak). - Unfractionated heparin (UFH) therapeutic range: 0.30-0.70 IUnits/mL - Direct factor Xa inhibitors (rivaroxaban, apixaban): Results must be interpreted qualitatively. No activity detected suggests little anticoagulant activity. - In severe antithrombin deficiency, anti-Xa measurement may be inaccurate. - Interpretive guidelines developed in adult populations. Interpretive guidelines for pediatric patients have not been rigorously defined. - Current interpretive data was last revised on 2019. Blood 11/30/2024 5:13 AM CDT 11/30/2024 5:55 AM CDT Gurwinder HAIR - 11/30/2024 6:17 AM CDT STAT Anti Xa timing: - Draw 6 hours after heparin infusion initiation - Draw 6 hours after every dose change until 2 consecutive Anti Xas are therapeutic - Once 2 consecutive Anti Xas are therapeutic, obtain with daily labs until infusion is discontinued - - Restart every 6 hour lab draws and follow instructions accordingly if Anti Xa is outside of therapeutic range Do not draw lab from IV line that is actively infusing heparin. Use the opposite arm. If arm with actively infusing heparin must be used, pause the infusion for at least 2 minutes, and draw specimen below the IV site. For patients with a central venous catheter (CVC), lab must be drawn peripherally (not from CVC). us Khanh Salazar MD LAB BLOOD ORDERABLES Final Res ult [facility] [place] [address] from Last 3 Months Insurance Advance Directives For more information, please contact: [phone] * Full Code (Latest Code Status on File) Date Activated Date Inactivated Comments 11/28/2024 8:48 PM 12/09/2024 5:19 PM Care Teams Mobility Engineer Relationship Specialty Start Date End Date Cece Bae PA [address] [place] [address] PCP - General Family Practice 10/28/24 Jenny Patrick, JAVA SOFTWARE DEVELOPER Screen Print Operator 10/29/24 Raoul Concepcion MD [address] DIV IM MEDICAL ONCOLOGY, [address] [place] [address] Medical Oncologist/Jigger Artisan Medical Oncology 10/31/24 Radha Villarreal, RN Nurse Navigator 10/31/24 Khanh Salazar MD [address] [place] [address] Surgeon Otolaryngology 10/31/24 Keyshawn Villarreal MD [address] [place] [address] [address] [place] [address] Radiation Oncologist Radiation Oncology 10/31/24 Nathan Cardenas DO [address] [facility] [address] [place] [address] Referring Physician Internal Medicine 11/13/24
--- OUTSIDE RECORDS SUMMARY | 2025-03-02 14:48 | XMS_ITS | Clinical Summary ---
Author Organization [facility] Address [address] [place] [address] Care Team Providers Care Marine Animal Trainer Name Role Phone Cece Bae Primary Care Provider Source Comments [facility],non-owned Affiliates and Associated Physician Practices is amultiple site organization consisting of ambulatory clinics and hospital sitesin [place], [place], [place] and [place]. This disclosure is being madepursuant to the Care Everywhere program and may not contain all information available regarding this patient. Last updated 18.[facility] Encounters Date Type Department Care Team Description 12/09/[address] [facility] at Home Scheduling [address] [place] [address] Nishant Rossy Cancer of head and neck (HCC) from Last 3 Months Social History Tobacco Use Types Packs/Day Years Used Date Smoking Tobacco: Never Assessed Sex and Gender Information Value Date Recorded Sex Assigned at Not on file Legal Sex Male 10:33 AM CDT Gender Identity Not on file Sexual Orientation Not on file Plan of Treatment Health Maintenance Due Date Last Done Comments COLOGUARD (AGES 45-75) - COL ON CA SCREENING 1960 COLON MONITORING 1960 COLONOSCOPY - COLON CA SCREENING 1960 CT COLONOGRAPHY - COLON CA SCREENING 1960 Colorectal Cancer Screening 1960 FIT - COLON CA SCREENING 1960 FLEX SIG - COLON CA SCREENING 1960 LIPID TESTING 1960 HIV SCREENING 11/09/1975 HEPATITIS C SCREENING 11/04/1978 DTAP/TDAP/TD VACCINES (1 - Tdap) 11/09/1979 PNEUMOCOCCAL VACCINE 50+ (1 of 1 - PCV) 2010 ZOSTER VACCINE (1 of 2) 2010 COVID-19 VACCINE (1 - 2023-2 5 season) 2024 DEPRESSION SCREENING 07/23/2024 INFLUENZA VACCINE (#1) 2025 Respiratory Syncytial Virus (RSV) Vaccine Pt: or over 60 yrs (1 - 1-dose 75+ series) 11/09/2035 HEPATITIS B VACCINE Aged Out No longe r eligible based on patient's age to complete this topic HIB VACCINE Aged Out No longer eligi ble based on patient's age to complete this topic HPV VACCINE Aged Out No longer eligi ble based on patient's age to complete this topic MENINGOCOCCAL (Group B) VACC INE SHARED DECISION-MAKING Aged Out No longer eligibl e based on patient's age to complete this topic MENINGOCOCCAL GROUPS A/C/Y/W VACCINE Aged Out No longer eligible b ased on patient's age to complete this topic Insurance Care Teams Marine Animal Trainer Relationship Specialty Start Date End Date Cece Bae PA [address] [place] [address] PCP - General Physician Securities Compliance Examiner 12/09/24
--- NOTE | 2025-03-02 15:13 | ECHO_ITS ---
Patient Info Name: Thierry Box Age: 64 years : 1960 Gender: Male Ht: 70 in Wt: 165 lbs BSA: 1.93 m2 HR: 92 bpm BP: 113 / 70 mmHg Heart Rhythm: Sinus Rhythm Technical Quality: Fair Exam Date: 03/02/2025 3:28 PM Patient Status: O Admit Date: 03/02/2025 Exam Type: CA echo dop color flow w con Complete two-dimensional, color flow and Doppler transthoracic echocardiogram is performed with contrast to opacify the left ventricle and to improve the deliniation of the left ventricle endocardial borders. Director Of Catering: Kerri Arguelles Attending Provider: Nathan Cardenas DO Contrast/Agitated Saline Contrast/Ag. Saline: Definity Amount: 2.00 ml Existing IV Access: No New IV Access: Left Site Condition: IV removed Summary 1. Definity contrast administered improved wall motion interpretation. 2. Left ventricular chamber dimension is severely enlarged. 3. Left ventricular systolic function is severely globally reduced, estimated at 25-30. 4. The left ventricular diastolic function is abnormal. 5. E/e' 13 is mildly elevated. 6. Left atrial chamber dimension is mildly enlarged. 7. There is mild mitral valve regurgitation. 8. There is trace tricuspid valve regurgitation. 9. No pulmonary hypertension, estimated pulmonary arterial systolic pressure is 18 mmHg. Left Ventricle Definity contrast administered improved wall motion interpretation. Left ventricular chamber dimension is severely enlarged. Left ventricular systolic function is severely globally reduced, estimated at 25-30. The left ventricular diastolic function is abnormal. E/e' 13 is mildly elevated. Right Ventricle Right ventricular chamber dimension is normal. Right ventricular systolic function is normal and with normal TAPSE 1.9 cm. Left Atria Left atrial chamber dimension is mildly enlarged. Right Atria Right atrial chamber dimension is normal. Aortic Valve The aortic valve is trileaflet. There is no aortic valve stenosis. There is no aortic valve regurgitation. Pulmonic Valve There is no pulmonic regurgitation. Mitral Valve There is no mitral valve stenosis. There is mild mitral valve regurgitation. Tricuspid Valve There is trace tricuspid valve regurgitation. No pulmonary hypertension, estimated pulmonary arterial systolic pressure is 18 mmHg. Pericardium/Pleural There is no pericardial effusion. Inferior Vena Cava Normal inferior vena cava with >50% collapse upon inspiration consistent with normal right atrial pressure, 5 mmHg. Aorta The aortic root size at the sinus of Valsalva is normal. Left Ventricular Outflow Tract Name Value Normal LVOT 2D LVOT Diameter 2.1 cm LVOT Doppler LVOT Peak Velocity 88 cm/s LVOT Peak Gradient 3 mmHg LVOT Mean Gradient 1 mmHg LVOT VTI 16 cm LVOT VTI/AV VTI Ratio 0.6 LVOT Stroke Volume 53 ml LVOT CO 4.1 l/min LVOT CI 2.2 l/min/m2 Mitral Valve Name Value Normal MV Regurgitation Doppler MR Peak Gradient 60 mmHg MV Diastolic Function MV E Peak Velocity 89 cm/s MV A Peak Velocity 2 cm/s MV E/A 38.0 MV Decel Time (PW) 118 ms MV Annular TDI MV E/e' (Septal) 16.5 MV E/e' (Lateral) 11.6 MV E/e' (Average) 14.0 Tricuspid Valve Name Value Normal TV Regurgitation Doppler TR Peak Velocity 181 cm/s TR Peak Gradient 13 mmHg Estimated PAP/RSVP RA Pressure 5 mmHg <=5 PA Systolic Pressure 18 mmHg <36 RV Systolic Pressure 18 mmHg <36 TV Annular TDI TV Lateral Anika s' Velocity 7.6 cm/s >=9.5 Aortic Valve Name Value Normal AV Doppler AV Peak Velocity 167 cm/s AV Peak Gradient 11 mmHg AV Mean Gradient 6 mmHg AV VTI 28 cm AV Area (Cont Eq VTI) 1.9 cm2 >=3.0 AV Area (Cont Eq Arsalan) 1.8 cm2 AV DI (Arsalan) 0.53 AV Regurgitation 2D LVOT Area 3.3 cm2 Ventricles Name Value Normal LV Dimensions 2D/MM IVS Diastolic Thickness (2D) 0.8 cm 0.6-1.0 LVID Diastole (2D) 6.4 cm 4.2-5.8 LVIW Diastolic Thickness (2D) 0.8 cm 0.6-1.0 LVID Systole (2D) 5.7 cm 2.5-4.0 LVOT Diameter 2.1 cm LV Mass (2D Cubed) 213.91 g 88.00-224.00 LV Mass Index (2D Cubed) 111 g/m2 49-115 Relative Wall Thickness (2D) 0.24 <=0.42 LV Fractional Shortening/Ejection Fraction 2D/MM LV Fractional Shortening (2D) 11 % 25-43 LV EF (2D Teichholz) 24 % LV Diastolic Volume (4C MOD) 173 ml LV EF (4C MOD) 44 % LV Diastolic Volume (2C MOD) 118 ml LV EF (2C MOD) 30 % LV Diastolic Volume (BP MOD) 151 ml 62-150 LV Diastolic Volume Index (BP MOD) 79 ml/m2 34-74 LV Systolic Volume (BP MOD) 92 ml 21-61 LV Systolic Volume Index (BP MOD) 48 ml/m2 11-31 LV EF (BP MOD) 39 % 52-72 LV Diastolic Length (4C) 10.3 cm LV Systolic Length (4C) 8.5 cm LV Stroke Volume (4C MOD) 76 ml Atria Name Value Normal LA Dimensions LA Volume (4C A-L) 60 ml LA Volume (BP A-L) 65 ml RA Dimensions RA Area (4C) 17.6 cm2 <=18.0 Report Signatures
[2025-03-02] MEDS: PERFLUTREN LIPID MICROSPHERES 1.5 ML VIAL DILUTED TO 10 ML TOTAL VOLUME IV PUSH (16:00)
--- NOTE | 2025-03-02 16:17 | IVDEFINITY ---
Prior to administration of IV Definity the patient was educated on the risks and benefits of the imaging enhancing agent including potential adverse side effects. The patient verbalized understanding. Allergies were verified. No exclusion criteria were identified and at least one of the following inclusion criteria were met: 1) physician request, 2) patient technically difficult to image (per the [place] [employer] Echocardi[employer] guidelines of two or more segments not discernable within the apical view), or 3) questionable left ventricular function. ?
== END 2025-03-02 14:32 | disposition home or self-care (01) ==
LOC: ANHCARD 14:34
PROVIDERS: PCP Physician Assistant Medical; Visit Provider Internal Medicine Cardiovascular Disease
DX: R93.1 Abnormal findings on diagnostic imaging of heart and coronary circulation (principal); I51.9 Heart disease, unspecified
CPT/HCPCS: C8929; Q9957